=== PATIENT | male | born 1965 | race Caucasian/White ===

== ENCOUNTER 2017-01-05 21:27 | Emergency (ER) | payer OTHER ==
[2017-01-05 21:33] VITALS: RESP 18
[2017-01-05] MEDS ORDERED: ONDANSETRON 4 MG/2 ML VIAL IVP ONE ×2 (21:46→23:19)
[2017-01-05] MEDS ORDERED: NS 1,000 ML IV ONE (23:17)
[2017-01-05 23:22] LABS: % IMMATURE GRANULYOCYTES 0.4 % (0.0-1.1); ABSOLUTE IMMATURE GRANULOCYTES 0.05 10^3/uL (0.00-0.10); ADD DIFF? NO; ADD MORPH? NO; ADD SCAN? NO; ATYPICAL LYMPHOCYTE FLAG 30 (0-99); FRAGMENT RBC FLAG 0 (0-99); HEMATOCRIT 45.9 % (40.0-51.0); HEMOGLOBIN 16.2 g/dL (13.7-17.5); LEFT SHIFT FLG 0 (0-99); LIPEMIA HEMOLYSIS FLAG 90 (0-99); MEAN CELL HEMOGLOBIN CONCENTR. 35.3 g/dL (32.4-36.7); MEAN CELL VOLUME 87.8 fL (81.5-99.8); MEAN PLATELET VOLUME 8.9 fL (8.7-11.7); PLATELET CLUMPS FLAG 0 (0-99); PLATELET COUNT 435 10^3/uL (150-400); RED BLOOD CELL COUNT 5.23 10^6/uL (4.40-6.38); RED CELL DISTRIBUTION WIDTH 11.3 % (11.5-15.2)
[2017-01-05 23:28] LABS: ALANINE AMINOTRANSFERASE 28 IU/L (21-72); ALBUMIN 3.9 g/dL (3.5-5.0); ALKALINE PHOSPHATASE 91 IU/L (38-126); ANION GAP 12 mEq/L (8-16); ASPARTATE AMINOTRANSFERASE 17 IU/L (17-59); BILIRUBIN,TOTAL 1.2 mg/dL (0.1-1.4); BILIRUBIN-CONJUGATED 0.6 mg/dL (0.0-0.5); BILIRUBIN-UNCONJUGATED 0.6 mg/dL (0.0-1.1); CARBON DIOXIDE 28 mEq/l (22-31); CHLORIDE 96 mEq/L (97-110); CREATININE 1.1 mg/dL (0.7-1.3); GLOMERULAR FILTRATION RATE > 60; GLUCOSE 115 mg/dL (70-100); POTASSIUM 3.6 mEq/L (3.5-5.2); SODIUM 136 mEq/L (134-144)
[2017-01-05] MEDS ORDERED: KETOROLAC 15 MG/1 ML SDV ONE (23:41)
[2017-01-05] MEDS ORDERED: KETOROLAC 15 MG/1 ML SDV IVP ONE (23:44)
[2017-01-06 00:04] VITALS: O2SAT 96
--- NOTE | 2017-01-06 01:05 | EDPHY ---
H & P Stated Complaint: emesis and diarrhea for 10 days Time Seen by Provider: 01/05/17 22:55 HPI/ROS: Chief complaint: Nausea vomiting diarrhea. HPI: 51-year-old male has been having 2 weeks of general malaise. States 2 weeks ago he had an upper respiratory infection and had some nausea and vomiting associated with that. He felt better, but again started having some nausea and vomiting which started early this morning. Also had 2 loose stools today. No blood or melena. He is being evaluated for chronic back pain and is on meloxicam for this. He last took it last night. No fevers or chills. Some generalized body aches. No abdominal pain or epigastric pain or burning. No hematemesis. He does state that he feels dehydrated and has not been keeping any fluids down today. No cough, chest pain, or shortness of breath. ROS: 10 point Review of Systems is negative except as noted in the HPI. Past medical history: Chronic back pain Medications: Meloxicam Allergies: Latex Physical exam: Gen: Awake, Alert, No Distress HEENT: Nose: no rhinorrhea Eyes: PERRLA, EOMI Mouth: Dry mucosa Neck: Supple, no JVD Chest: nontender, lungs clear to auscultation Heart: S1, S2 normal, no murmur Abd: Soft, non-tender, no guarding Back: no CVA tenderness, no midline tenderness Ext: no edema, non-tender Skin: no rash Neuro: CN II-XII intact, Sensation grossly intact, Strength 5/5 in bilateral upper and lower extremities - Personal History Current Tetanus/Diphtheria Vaccine: Yes Current Tetanus Diphtheria and Acellular Pertussis (TDAP): Yes - Medical/Surgical History Hx Asthma: No Hx Chronic Respiratory Disease: No Hx Diabetes: No Hx Cardiac Disease: No Hx Renal Disease: No Hx Cirrhosis: No Hx Alcoholism: No Hx HIV/AIDS: No Hx Splenectomy or Spleen Trauma: No Other PMH: left knee surgery - Social History Smoking Status: Never smoked Constitutional: Initial Vital Signs Temperature (C) 36.6 C 01/05/17 21:31 Heart Rate 102 H 01/05/17 21:31 Respiratory Rate 18 01/05/17 21:31 Blood Pressure 143/116 H 01/05/17 21:31 O2 Sat (%) 96 01/05/17 21:31 O2 Delivery Mode Room Air Allergies/Adverse Reactions: Latex, Natural Rubber Allergy (Verified 01/05/17 21:34) Home Medications: Medication Instructions Recorded Synthroid 01/05/17 Medical Decision Making ED Course/Re-evaluation: Patient having general malaise, nausea vomiting 2 loose stools today appearing dehydrated. He has benign exam including a soft abdomen without any epigastric tenderness. He has had some diarrhea but no black stools. CBC is normal with a mild leukocytosis consistent with a viral illness. Will give him IV fluids here is feeling better. Also had some Toradol here. He has not taken his meloxicam today. He is scheduled for an MRI next week in his lumbar spine. Will discharge with follow-up with his primary care physician in follow-up for his MRI. Return for worsening. There is no evidence of acute upper GI bleeding at this time. - Data Points Laboratory Results: Laboratory Results 01/05/17 21:44 01/05/17 21:44 01/05/17 01/05/17 21:44 21:44 WBC 11.67 10^3/uL H 10^3/uL (3.80-9.50) RBC 5.23 10^6/uL 10^6/uL (4.40-6.38) Hgb 16.2 g/dL g/dL (13.7-17.5) Hct 45.9 % % (40.0-51.0) MCV 87.8 fL fL (81.5-99.8) MCH 31.0 pg pg (27.9-34.1) MCHC 35.3 g/dL g/dL (32.4-36.7) RDW 11.3 % L % (11.5-15.2) Plt Count 435 10^3/uL H 10^3/uL (150-400) MPV 8.9 fL fL (8.7-11.7) Neut % (Auto) 72.9 % % (39.3-74.2) Lymph % (Auto) 17.0 % % (15.0-45.0) [place] % (Auto) 5.7 % % (4.5-13.0) Eos % (Auto) 3.7 % % (0.6-7.6) Baso % (Auto) 0.3 % % (0.3-1.7) Nucleat RBC Rel Count 0.0 % % (0.0-0.2) Absolute Neuts (auto) 8.52 10^3/uL H 10^3/uL (1.70-6.50) Absolute Lymphs (auto) 1.98 10^3/uL 10^3/uL (1.00-3.00) Absolute Monos (auto) 0.66 10^3/uL 10^3/uL (0.30-0.80) Absolute Eos (auto) 0.43 10^3/uL H 10^3/uL (0.03-0.40) Absolute Basos (auto) 0.03 10^3/uL 10^3/uL (0.02-0.10) Absolute Nucleated RBC 0.00 10^3/uL 10^3/uL (0-0.01) Immature Gran % 0.4 % % (0.0-1.1) Immature Gran # 0.05 10^3/uL 10^3/uL (0.00-0.10) Sodium 136 mEq/L mEq/L (134-144) Potassium 3.6 mEq/L mEq/L (3.5-5.2) Chloride 96 mEq/L L mEq/L (97-110) Carbon Dioxide 28 mEq/l mEq/l (22-31) Anion Gap 12 mEq/L mEq/L (8-16) BUN 23 mg/dL mg/dL (7-23) Creatinine 1.1 mg/dL mg/dL (0.7-1.3) Estimated GFR > 60 Glucose 115 mg/dL H mg/dL (70-100) Calcium 11.0 mg/dL H mg/dL (8.5-10.4) Phosphorus 3.7 mg/dL mg/dL (2.5-4.5) Total Bilirubin 1.2 mg/dL mg/dL (0.1-1.4) Conjugated Bilirubin 0.6 mg/dL H mg/dL (0.0-0.5) Unconjugated Bilirubin 0.6 mg/dL mg/dL (0.0-1.1) AST 17 IU/L IU/L (17-59) ALT 28 IU/L IU/L (21-72) Alkaline Phosphatase 91 IU/L IU/L (38-126) Total Protein 7.0 g/dL g/dL (6.3-8.2) Albumin 3.9 g/dL g/dL (3.5-5.0) Lipase 104.0 IU/L IU/L (23-300) Medications Given: Discontinued Medications Sodium Chloride (Ns) 1,000 mls @ 0 mls/hr IV ONCE ONE PRN Reason: Wide Open Stop: 01/05/17 23:18 Last Admin: 01/05/17 23:18 Dose: 1,000 mls Ketorolac Tromethamine (Toradol) 15 mg IVP EDNOW ONE Stop: 01/05/17 23:45 Last Admin: 01/05/17 23:48 Dose: 15 mg Ondansetron HCl (Zofran) 4 mg IVP EDNOW ONE Stop: 01/05/17 21:47 Last Admin: 01/05/17 21:51 Dose: 4 mg Ondansetron HCl (Zofran) 4 mg IVP EDNOW ONE Stop: 01/05/17 23:20 Last Admin: 01/05/17 23:24 Dose: 4 mg Departure - Departure Disposition: Home, Routine, Self-Care Clinical Impression: Vomiting, Dehydration, Diarrhea Condition: Good Instructions: Acute Diarrhea (ED), Acute Nausea and Vomiting (ED) Additional Instructions: Drink plenty of fluids. You may take ondansetron for nausea and vomiting. Follow up with her primary care physician in 2-3 days for re-evaluation. Referrals: BRITTA CAZARES [Primary Care Provider] - As per Instructions
[2017-01-06] MEDS ORDERED: ONDANSETRON 4MG PREPACK#2 BTL TAKEHOME ONE (01:06)
[2017-01-06 01:19] VITALS: BP 149/109; PULSE 92; TEMP 98.6
== END 2017-01-06 01:19 | disposition home or self-care (01) ==
DX: R19.7 Diarrhea, unspecified (principal); E86.0 Dehydration; R11.10 Vomiting, unspecified; Z91.040 Latex allergy status
CPT/HCPCS: 96374; J1885; J2405

== ENCOUNTER 2017-01-10 16:11 | Inpatient (IN) | payer OTHER ==
[2017-01-10] MEDS ORDERED: NS 1,000 ML IV ONE ×2 (16:26→20:22)
[2017-01-10] MEDS ORDERED: PANTOPRAZOLE SODIUM 40 MG in NS 100 ML IV ONE (16:26)
[2017-01-10 16:31] LABS: % IMMATURE GRANULYOCYTES 0.9 % (0.0-1.1); ABSOLUTE IMMATURE GRANULOCYTES 0.22 10^3/uL (0.00-0.10); ADD DIFF? NO; ADD MORPH? NO; ADD SCAN? NO; ATYPICAL LYMPHOCYTE FLAG 0 (0-99); FRAGMENT RBC FLAG 0 (0-99); HEMATOCRIT 38.2 % (40.0-51.0); HEMOGLOBIN 13.5 g/dL (13.7-17.5); LEFT SHIFT FLG 0 (0-99); LIPEMIA HEMOLYSIS FLAG 90 (0-99); MEAN CELL HEMOGLOBIN 31.1 pg (27.9-34.1); MEAN CELL HEMOGLOBIN CONCENTR. 35.3 g/dL (32.4-36.7); PLATELET CLUMPS FLAG 10 (0-99); PLATELET COUNT 584 10^3/uL (150-400); RED BLOOD CELL COUNT 4.34 10^6/uL (4.40-6.38); RED CELL DISTRIBUTION WIDTH 11.5 % (11.5-15.2)
--- NOTE | 2017-01-10 16:38 | EDPHY ---
H & P Stated Complaint: Hematemesis Time Seen by Provider: 01/10/17 16:12 HPI/ROS: Chief complaint: Vomiting blood, diarrhea, syncope HPI: 51-year-old male with a history of chronic back pain who is been having 2 weeks of nausea vomiting and diarrhea. I saw him 4 days ago with nausea vomiting diarrhea at that time. He had normal H&H at that time. Had not been vomiting blood or having dark stools then. Patient states that he had been doing better and his diarrhea had light and up yesterday. Patient did eat some dinner last night and felt nauseated so vomited before bed. Patient was doing better today but again felt nauseated and had emesis of dark emesis. He then felt very lightheaded and laid down and felt he cannot get up off of the floor. EMS was called. On EMS arrival when they stood him to take him to the program he had a syncopal episode. He woke up after a few seconds and he then vomited a large amount of emesis which did contain some bright red blood with some clots. Still denies any melena. It is noteworthy that he is on meloxicam for his back. Patient is still using occasional marijuana but has not had any alcohol for a couple of weeks. Denies any fevers or chills. Also has a history of hypothyroidism and has been compliant with his medications. Denies any chest pain or abdominal pain. No palpitations. Per EMS the patient was tachycardic and hypotensive EN route. They gave him 800 mL of normal saline IV. ROS: 10 point Review of Systems is negative except as noted in the HPI. Past medical history: Chronic back pain Hypothyroidism Medications: Synthroid Meloxicam Allergies: Latex Physical exam: Gen: Awake, Alert, No Distress HEENT: Nose: no rhinorrhea Eyes: PERRLA, EOMI, pale conjunctiva Mouth: Moist mucosa Neck: Supple, no JVD Chest: nontender, lungs clear to auscultation Heart: S1, S2 normal, no murmur Abd: Soft, non-tender, no guarding Back: no CVA tenderness, no midline tenderness Ext: no edema, non-tender Skin: no rash Neuro: CN II-XII intact, Sensation grossly intact, Strength 5/5 in bilateral upper and lower extremities - Medical/Surgical History Hx Asthma: No Hx Chronic Respiratory Disease: No Hx Diabetes: No Hx Cardiac Disease: No Hx Renal Disease: No Hx Cirrhosis: No Hx Alcoholism: No Hx HIV/AIDS: No Hx Splenectomy or Spleen Trauma: No Other PMH: left knee surgery, hypothyroidism - Social History Smoking Status: Never smoked Constitutional: Initial Vital Signs Temperature (C) 36.3 C 01/10/17 16:25 Heart Rate 98 01/10/17 16:25 Respiratory Rate 18 01/10/17 16:25 Blood Pressure 103/77 01/10/17 16:25 O2 Sat (%) 100 01/10/17 16:25 O2 Delivery Mode Room Air Allergies/Adverse Reactions: Latex, Natural Rubber Allergy (Verified 01/05/17 21:34) Home Medications: Medication Instructions Recorded Synthroid 01/05/17 Medical Decision Making ED Course/Re-evaluation: Patient presenting with an episode of syncope after hematemesis after 2 weeks of nausea vomiting and diarrhea. He is very clinically dehydrated with a mild tachycardia mild hypotension. He did have 1 episode of hematemesis but has not had any melena. Has not had any epigastric pain or burning. He has however taking meloxicam which is concerning for possible gastritis or upper GI bleed. Will aggressively hydrate him, check his labs and reassess. Hemoglobin is mildly low at 13.5, he does have a leukocytosis of 25 but I think this is secondary to his vomiting and diarrhea. His BUN is up at 28. Remainder of his lab work is fairly unremarkable. He remains mildly tachycardic with a rate of 104. He is getting IV hydrated here. I have discussed with Dr. Carolyne Castellano, hospitalist. Will plan to admit to med surg under observation status for further hydration and evaluation. - Data Points Laboratory Results: Laboratory Results 01/10/17 14:12 01/10/17 14:12 01/10/17 01/10/17 14:12 14:12 WBC 25.43 10^3/uL H 10^3/uL (3.80-9.50) RBC 4.34 10^6/uL L 10^6/uL (4.40-6.38) Hgb 13.5 g/dL L g/dL (13.7-17.5) Hct 38.2 % L % (40.0-51.0) MCV 88.0 fL fL (81.5-99.8) MCH 31.1 pg pg (27.9-34.1) MCHC 35.3 g/dL g/dL (32.4-36.7) RDW 11.5 % % (11.5-15.2) Plt Count 584 10^3/uL H 10^3/uL (150-400) MPV 9.0 fL fL (8.7-11.7) Neut % (Auto) 80.6 % H % (39.3-74.2) Lymph % (Auto) 12.6 % L % (15.0-45.0) [place] % (Auto) 3.2 % L % (4.5-13.0) Eos % (Auto) 2.4 % % (0.6-7.6) Baso % (Auto) 0.3 % % (0.3-1.7) Nucleat RBC Rel Count 0.0 % % (0.0-0.2) Absolute Neuts (auto) 20.49 10^3/uL H 10^3/uL (1.70-6.50) Absolute Lymphs (auto) 3.21 10^3/uL H 10^3/uL (1.00-3.00) Absolute Monos (auto) 0.82 10^3/uL H 10^3/uL (0.30-0.80) Absolute Eos (auto) 0.62 10^3/uL H 10^3/uL (0.03-0.40) Absolute Basos (auto) 0.07 10^3/uL 10^3/uL (0.02-0.10) Absolute Nucleated RBC 0.00 10^3/uL 10^3/uL (0-0.01) Immature Gran % 0.9 % % (0.0-1.1) Immature Gran # 0.22 10^3/uL H 10^3/uL (0.00-0.10) Sodium 136 mEq/L mEq/L (134-144) Potassium 4.1 mEq/L mEq/L (3.5-5.2) Chloride 101 mEq/L mEq/L (97-110) Carbon Dioxide 23 mEq/l mEq/l (22-31) Anion Gap 12 mEq/L mEq/L (8-16) BUN 28 mg/dL H mg/dL (7-23) Creatinine 1.1 mg/dL mg/dL (0.7-1.3) Estimated GFR > 60 Glucose 154 mg/dL H mg/dL (70-100) Calcium 9.4 mg/dL mg/dL (8.5-10.4) Total Bilirubin 0.9 mg/dL mg/dL (0.1-1.4) Conjugated Bilirubin 0.3 mg/dL mg/dL (0.0-0.5) Unconjugated Bilirubin 0.6 mg/dL mg/dL (0.0-1.1) AST 17 IU/L IU/L (17-59) ALT 37 IU/L IU/L (21-72) Alkaline Phosphatase 81 IU/L IU/L (38-126) Total Protein 6.0 g/dL L g/dL (6.3-8.2) Albumin 3.3 g/dL L g/dL (3.5-5.0) Lipase 148.0 IU/L IU/L (23-300) Departure - Departure Disposition: [facility] Inpatient Acute Clinical Impression: Vomiting, Dehydration, Syncope Condition: Fair Referrals: BRITTA CAZARES [Primary Care Provider] - As per Instructions
[2017-01-10 16:39] LABS: ALANINE AMINOTRANSFERASE 37 IU/L (21-72); ALBUMIN 3.3 g/dL (3.5-5.0); ALKALINE PHOSPHATASE 81 IU/L (38-126); ANION GAP 12 mEq/L (8-16); ASPARTATE AMINOTRANSFERASE 17 IU/L (17-59); BILIRUBIN,TOTAL 0.9 mg/dL (0.1-1.4); BILIRUBIN-CONJUGATED 0.3 mg/dL (0.0-0.5); BILIRUBIN-UNCONJUGATED 0.6 mg/dL (0.0-1.1); CALCIUM 9.4 mg/dL (8.5-10.4); CARBON DIOXIDE 23 mEq/l (22-31); CHLORIDE 101 mEq/L (97-110); CREATININE 1.1 mg/dL (0.7-1.3); GLOMERULAR FILTRATION RATE > 60; GLUCOSE 154 mg/dL (70-100); POTASSIUM 4.1 mEq/L (3.5-5.2); SODIUM 136 mEq/L (134-144)
[2017-01-10] MEDS ORDERED: PANTOPRAZOLE SODIUM 40 MG VIAL ONE (17:01)
[2017-01-10] MEDS ORDERED: PROMETHAZINE HCL 25 MG TAB PO PRN (18:57)
[2017-01-10] MEDS ORDERED: ONDANSETRON DISINTEGRATING 4 MG TAB PO PRN (18:57)
[2017-01-10] MEDS ORDERED: ACETAMINOPHEN 325 MG TAB PO PRN (18:57)
--- NOTE | 2017-01-10 20:38 | PDGENHP ---
History and Physical - Chief Complaint Syncope, hematemesis, N/V/D - History of Present Illness 51 yo male with h/o chronic back pain presents to ED with 2 weeks of N/V/D, ultimately leading to hematemesis and syncope this afternoon. He reports a h/o peptic ulcer disease in the . 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 3 weeks ago, he started on daily Meloxicam. About a week later, he developed nausea and vomiting with difficulty tolerating PO. 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 He was hydrated and discharged home feeling better. However, his symptoms persisted and he then developed diarrhea. He does endorse vague epigastric abdominal pain. He vomits at least twice a day and has had diarrhea about twice daily as well for the past several days. He denies hematochezia or melanotic stool. Today, he became lightheaded after vomiting and EMS was called. Upon their arrival, he had an episode of hematemesis with clots and then had a witnessed syncopal episode. He denies CP, SOB or palpitations. He also gives a h/o increased stress as his recently left him with their 2 children. He received 1 L NS in the ED and he now feels better. There has been no further emesis since arrival. Prior to his GI symptoms, he did complete a course of Azithromycin for URI symptoms. He denies camping or foreign travel. He reports sick contacts in his 2 children, who suffered from several viral illnesses recently. He also endorses a 15-20 lb weight loss since the onset of these symptoms There is a family h/o colon cancer in his uncle. He has not had much alcohol recently, though is a home cruz and is historically a somewhat regular drinker. History Information - Allergies/Home Medication List Allergies/Adverse Reactions: Latex, Natural Rubber Allergy (Verified 01/05/17 21:34) Home Medications: Levothyroxine [Synthroid 150 mcg (*)] 150 mcg PO DAILY06 01/05/17 [Last Taken 07:00] Acetaminophen [Tylenol ES 500 mg (*)] 1,000 mg PO Q8 PRN 01/10/17 [Last Taken ] Cholecalciferol (Vitamin D3) [Vitamin D3] 5,000 unit PO DAILY 01/10/17 [Last Taken 01/10/17 07:00] Cyclobenzaprine [Flexeril 10 MG (*)] 10 mg PO HS PRN 01/10/17 [Last Taken ] MELOXICAM [Mobic] 15 mg PO HS 01/10/17 [Last Taken 01/07/17] I have personally reviewed and updated: family history, medical history, social history, surgical history - Past Medical History Additional medical history: hypothyroidism, chronic low back pain, h/o PUD - Surgical History Additional surgical history: h/o pyloric stenosis repair at 10 months of life, left knee surgery - Family History Additional family history: dad was an alcoholic and had autoimmune hepatitis. His recently left him with their 2 children. His brother is at the bedside and is supportive. - Social History Smoking Status: Light smoker Tobacco Use: Cigarettes, Less than 1 pack/day Alcohol Use: Other (1-2 beers daily, though none for past several weeks) Drug Use: Marijuana Review of Systems ROS: 10pt was reviewed & negative except for what was stated in HPI & below Physical Exam Temp Pulse Resp BP Pulse Ox 36.3 C 100 16 97/73 L 97 01/10/17 18:24 01/10/17 20:00 01/10/17 20:00 01/10/17 20:00 01/10/17 20:00 Constitutional: no apparent distress Eyes: PERRL Ears, Nose, Mouth, Throat: dry mucous membranes Cardiovascular: regular rate and rhythym, no murmur, rub, or gallop Respiratory: no respiratory distress, no rales or rhonchi Gastrointestinal: normoactive bowel sounds, soft, non-tender abdomen Skin: warm Musculoskeletal: full muscle strength Neurologic: AAOx3 Psychiatric: interacting appropriately Lab Data & Imaging Review 01/10/17 20:30 01/10/17 14:12 WBC 25.43 10^3/uL (3.80-9.50) H 01/10/17 14:12 RBC 4.34 10^6/uL (4.40-6.38) L 01/10/17 14:12 Hgb 13.5 g/dL (13.7-17.5) L 01/10/17 14:12 Hct 38.2 % (40.0-51.0) L 01/10/17 14:12 MCV 88.0 fL (81.5-99.8) 01/10/17 14:12 MCH 31.1 pg (27.9-34.1) 01/10/17 14:12 MCHC 35.3 g/dL (32.4-36.7) 01/10/17 14:12 RDW 11.5 % (11.5-15.2) 01/10/17 14:12 Plt Count 584 10^3/uL (150-400) H 01/10/17 14:12 MPV 9.0 fL (8.7-11.7) 01/10/17 14:12 Neut % (Auto) 80.6 % (39.3-74.2) H 01/10/17 14:12 Lymph % (Auto) 12.6 % (15.0-45.0) L 01/10/17 14:12 [place] % (Auto) 3.2 % (4.5-13.0) L 01/10/17 14:12 Eos % (Auto) 2.4 % (0.6-7.6) 01/10/17 14:12 Baso % (Auto) 0.3 % (0.3-1.7) 01/10/17 14:12 Nucleat RBC Rel Count 0.0 % (0.0-0.2) 01/10/17 14:12 Absolute Neuts (auto) 20.49 10^3/uL (1.70-6.50) H 01/10/17 14:12 Absolute Lymphs (auto) 3.21 10^3/uL (1.00-3.00) H 01/10/17 14:12 Absolute Monos (auto) 0.82 10^3/uL (0.30-0.80) H 01/10/17 14:12 Absolute Eos (auto) 0.62 10^3/uL (0.03-0.40) H 01/10/17 14:12 Absolute Basos (auto) 0.07 10^3/uL (0.02-0.10) 01/10/17 14:12 Absolute Nucleated RBC 0.00 10^3/uL (0-0.01) 01/10/17 14:12 Immature Gran % 0.9 % (0.0-1.1) 01/10/17 14:12 Immature Gran # 0.22 10^3/uL (0.00-0.10) H 01/10/17 14:12 Sodium 136 mEq/L (134-144) 01/10/17 14:12 Potassium 4.1 mEq/L (3.5-5.2) 01/10/17 14:12 Chloride 101 mEq/L (97-110) 01/10/17 14:12 Carbon Dioxide 23 mEq/l (22-31) 01/10/17 14:12 Anion Gap 12 mEq/L (8-16) 01/10/17 14:12 BUN 28 mg/dL (7-23) H 01/10/17 14:12 Creatinine 1.1 mg/dL (0.7-1.3) 01/10/17 14:12 Estimated GFR > 60 01/10/17 14:12 Glucose 154 mg/dL (70-100) H 01/10/17 14:12 Calcium 9.4 mg/dL (8.5-10.4) 01/10/17 14:12 Total Bilirubin 0.9 mg/dL (0.1-1.4) 01/10/17 14:12 Conjugated Bilirubin 0.3 mg/dL (0.0-0.5) 01/10/17 14:12 Unconjugated Bilirubin 0.6 mg/dL (0.0-1.1) 01/10/17 14:12 AST 17 IU/L (17-59) 01/10/17 14:12 ALT 37 IU/L (21-72) 01/10/17 14:12 Alkaline Phosphatase 81 IU/L (38-126) 01/10/17 14:12 Total Protein 6.0 g/dL (6.3-8.2) L 01/10/17 14:12 Albumin 3.3 g/dL (3.5-5.0) L 01/10/17 14:12 Lipase 148.0 IU/L (23-300) 01/10/17 14:12 Assessment & Plan Assessment: Syncope secondary to volume depletion - Low suspicion for cardiac etiology, history is consistent with volume depletion. He has received a 1 L NS bolus in the ED. Will repeat and continue IVF's overnight. Hematemesis - he may have suffered a Elisa Peralta tear in the setting of persistent vomiting versus PUD / bleeding ulcer. IVF's as above, will trend H&H , IV PPI, GI consulted for EGD, NPO after midnight. N/V/D - This has been ongoing for >2 weeks. Check C diff given recent atbx use. GI pathogen panel ordered, which will also r/o Norovirus or other infectious etiology. His symptoms have predominantly been N/V thus PUD is a consideration. Check H pylori. GI consult / EGD as above. Hold NSAIDs. With his weight loss and change in bowel habits, he also needs colon cancer screening. Will defer to GI if inpt c-scope is warranted, o/w may have done as outpt. Also consider cannabis induced hyperemesis, though this doesn't seem classic for that and he denies THC use in past several weeks. Discussed THC cessation. Leukocytosis - Low suspicion for infection as he appears non-toxic. Suspect stress response in setting of vomiting. Check C diff as above. Hydrate overnight and repeat labs in am. Chronic low back pain - hold nsaids as above, will try lidocaine patch and will need PCP f/u for further pain management Dispo - obs. May need to change to inpt if he has ongoing hematemesis or h&h trending down
[2017-01-10] MEDS: NS 1,000 ML IV SCH (20:41)
[2017-01-10 20:45] LABS: HEMATOCRIT 31.9 % (40.0-51.0); HEMOGLOBIN 10.9 g/dL (13.7-17.5)
[2017-01-10] MEDS: PANTOPRAZOLE SODIUM 40 MG in NS 100 ML IV SCH (22:44)
[2017-01-11 03:31] LABS: HEMATOCRIT 28.1 % (40.0-51.0); HEMOGLOBIN 9.5 g/dL (13.7-17.5)
[2017-01-11] MEDS: LEVOTHYROXINE 150 MCG TAB PO SCH ×2 (06:37→07:41)
[2017-01-11 07:08] LABS: % IMMATURE GRANULYOCYTES 0.4 % (0.0-1.1); ABSOLUTE IMMATURE GRANULOCYTES 0.04 10^3/uL (0.00-0.10); ADD DIFF? NO; ADD MORPH? NO; ADD SCAN? NO; ATYPICAL LYMPHOCYTE FLAG 10 (0-99); FRAGMENT RBC FLAG 0 (0-99); HEMATOCRIT 28.1 % (40.0-51.0); HEMOGLOBIN 9.8 g/dL (13.7-17.5); LEFT SHIFT FLG 0 (0-99); LIPEMIA HEMOLYSIS FLAG 90 (0-99); MEAN CELL HEMOGLOBIN 31.5 pg (27.9-34.1); MEAN CELL HEMOGLOBIN CONCENTR. 34.9 g/dL (32.4-36.7); MEAN CELL VOLUME 90.4 fL (81.5-99.8); MEAN PLATELET VOLUME 8.8 fL (8.7-11.7); PLATELET CLUMPS FLAG 10 (0-99); RED BLOOD CELL COUNT 3.11 10^6/uL (4.40-6.38); RED CELL DISTRIBUTION WIDTH 11.8 % (11.5-15.2)
[2017-01-11 07:12] LABS: INR 1.19 (0.83-1.16); PROTIME(PATIENT) 15.1 SEC (12.0-15.0)
[2017-01-11 07:21] LABS: PLATELET COUNT 314 10^3/uL (150-400)
[2017-01-11 07:39] LABS: ANION GAP 8 mEq/L (8-16); CALCIUM 8.4 mg/dL (8.5-10.4); CARBON DIOXIDE 21 mEq/l (22-31); CHLORIDE 108 mEq/L (97-110); CHOLESTEROL 106 mg/dL (140-220); CHOLESTEROL/HDL RATIO 5.89 RATIO (1.00-4.97); GLOMERULAR FILTRATION RATE > 60; GLUCOSE 85 mg/dL (70-100); HIGH DENSITY LIPOPROTEIN 18 mg/dL (40-65); LDL/HDL RATIO 3.39 RATIO (1.00-3.64); LOW DENSITY LIPOPROTEIN 61 mg/dL (80-100); NON-HIGH DENSITY LIPOPROTEIN 88 mg/dL (90-129); POTASSIUM 4.7 mEq/L (3.5-5.2); SODIUM 137 mEq/L (134-144); TRIGLYCERIDE 139 mg/dL (40-150); VERY LOW DENSITY LIPOPROTEINS 27 mg/dL (8-25)
[2017-01-11] MEDS: LIDOCAINE 5% 1 EA PATCH TD SCH (07:41)
[2017-01-11] MEDS: PANTOPRAZOLE SODIUM 40 MG in NS 100 ML IV SCH ×2 (07:41→22:05)
[2017-01-11] MEDS: NS 1,000 ML IV SCH ×3 (07:42→22:05)
[2017-01-11] MEDS ORDERED: fentaNYL 100 MCG/2 ML INJ ONE ×2 (11:50→12:10)
[2017-01-11] MEDS ORDERED: MIDAZOLAM 2 MG/2 ML VIAL ONE (11:50)
[2017-01-11] MEDS ORDERED: EPINEPHrine 1 MG/10 ML SYR IVP ONE ×2 (12:01→12:33)
[2017-01-11] MEDS ORDERED: ETOMIDATE 20 MG/10 ML VIAL ONE ×2 (12:12)
[2017-01-11] MEDS ORDERED: SUCCINYLCHOLINE CHLORIDE*ANESTHESIA ONLY*200 MG/10 ML SYR IVP ONE (12:12)
--- NOTE | 2017-01-11 12:19 | GCON ---
[f rep st] CONSULTATION CHIEF COMPLAINT: Hematemesis, anemia. HISTORY OF PRESENT ILLNESS: This 51-year-old gentleman has a history of chronic back pain. He had presented to the emergency room about 2 weeks ago with complaints of nausea, vomiting, and diarrhea. He was diagnosed with a gastrointestinal illness at that time. He does have a remote history of p eptic ulcer disease. 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 He does have chronic back pain. About 3 weeks ago, he did start on meloxicam. About a week later he did have some nausea wi th some vomiting and difficulty keeping in p.o. He reports he has lost about 15 pounds over the las t 2 weeks due to difficulty eating. He had presented 4 days prior to admission with the above compl aints and was given IV fluids and discharged home. His symptoms, however, persisted and he develope d some diarrhea, was feeling lightheaded and having some epigastric pain. He vomited at home and re ported had some hematemesis. Ambulance was called and he did have a syncopal episode prior to trans port. He had another episode of vomiting in the ambulance. He was not having any chest pain or haylee rtness of breath. He was given IV fluids in the emergency room with improvement and was hemodynamic ally stable. He does report that he was also recently given azathioprine for his previous URI illne ss. He did have an episode of melenic stool this morning. He has been hemodynamically stable. He did have a drop in his hematocrit from 38.2 to 28.2. I have been asked to see patient for further e valuation. PAST MEDICAL HISTORY: Remarkable for hypothyroidism, remote history of pyloric stenosis as an infan t, status post surgery, chronic low back pain, history of peptic ulcer disease, left knee surgery. MEDICATIONS: Prior to admission included levothyroxine, acetaminophen, vitamin D3, Flexeril, meloxi cam. ALLERGIES: Reports allergies to latex and rubber. FAMILY HISTORY: Negative as it pertains to chief complaint. SOCIAL HISTORY: He is a light smoker. Drinks 1-2 beers daily. Does use marijuana. He is , but . Has 2 children. REVIEW OF SYSTEMS: Negative for 10 systems other than mentioned in HPI. PHYSICAL EXAMINATION: VITAL SIGNS: 116/83, 96 heart rate, respiratory rate 16, 97% sat on room air , temperature 37.2. GENERAL: Very pleasant gentleman, no acute distress, lying in a stretcher. HE ENT: Normocephalic, atraumatic. EOMI. NECK: Supple. No cervical adenopathy. No thyromegaly. M ucous membranes moist. LUNGS: Clear. CARDIAC: Normal S1, S2, without murmur. ABDOMEN: Soft, be nign. Normal bowel sounds. Nontender. EXTREMITIES: Without clubbing, cyanosis, edema. NEURO: N onfocal. SKIN: Warm and dry, intact. PSYCH: Alert and oriented with normal affect. LABORATORY DATA: Hemoglobin 9.8, hematocrit 28.1. PT of 15.1 with an INR of 1.19. Serum sodium 13 7, potassium 4.7, chloride 108, CO2 21, BUN of 43. IMPRESSION: 51-year-old male with gastrointestinal bleed, remote history of peptic ulcer disease, r ecent NSAID use. Suspect peptic ulcer disease, NSAID-induced gastritis, or ulceration. RECOMMENDATIONS: Serial H and H, IV pantoprazole. Proceed with diagnostic endoscopy. We will foll ow with you. /[id number]/[id number]
[2017-01-11] MEDS ORDERED: ONDANSETRON 4 MG/2 ML VIAL ONE (12:40)
[2017-01-11] MEDS ORDERED: PANTOPRAZOLE SODIUM 80 MG in NS 100 ML IV ONE (12:55)
--- NOTE | 2017-01-11 14:19 | GPN ---
[f rep st] PROCEDURE NOTE PROCEDURE: Esophagogastroduodenoscopy with control of hemorrhage. PREOPERATIVE DIAGNOSIS: Gastrointestinal bleed. POSTOPERATIVE DIAGNOSIS: Active bleeding and duodenal ulcer, status post treatment with epinephrine , 11 cc 1:10,000. INDICATIONS: A 51-year-old gentleman with a 2-week course of recurrent nausea, vomiting and previou s acute gastrointestinal illness. Patient with low back pain who is started on meloxicam. He has b een having some epigastric pain with nausea, vomiting, hematemesis. He did drop his hematocrit. He has been hemodynamically stable in the hospital. Presents now for upper endoscopy. PHYSICAL EXAM: VITAL SIGNS: Stable. LUNGS: Clear. CARDIAC: Normal S1, S2. No murmur. PERMIT: The procedure was explained to the patient. The risks and benefits of the procedure were o utlined to the patient. Informed consent was obtained. PREOPERATIVE MEDICATIONS: Fentanyl 150 mcg, Versed 6 mg. FINDINGS OF PROCEDURE: Patient placed in left lateral decubitus position. GIF-180 video scope was passed in the oropharynx under direct visualization to the esophagus. The esophagus was remarkable for severe erosive esophagitis, consistent with patient's history of recurrent nausea and vomiting. Endoscope was passed in the stomach. There was evidence of clot and blood in the dependent portion of the stomach. Distal stomach appeared normal with normal pylorus and antrum. The endoscope was passed through the pylorus in the 1st and 2nd portion of the duodenum. The second portion of the du odenum was normal. The first portion of the duodenum there was a 1 cm ulceration with adherent clot and question visible vessel. It was somewhat laterally located, slightly inferior. The clot was w ashed, and then there was significant brisk active bleeding. A large amount of blood pooled and obs cured the pylorus. Unable to see well endoscopically due to a large amount of blood. The patient s tarted vomiting blood. The endoscope was then withdrawn. Anesthesia was consulted. The patient wa s then stabilized and intubated. The patient became very tachycardic. 1 unit of cross-matched bloo d was transfused, and his 2nd unit of cross-matched blood was then ordered. The patient was then re intubated with a therapeutic TGIF-180 endoscope to assess the pylorus and the 1st and 2nd portions o f the duodenum. There was a large amount of clot in the dependent portion of the stomach. The endo scope was passed to the pylorus. There was a large amount of clot. The area was injected blindly w ith epinephrine 1:10,000, total 11 cc. There appeared to be blanching of the duodenal mucosa. Ther e seemed to be control of bleeding with no active bleeding. The therapeutic scope was removed, and the standard GIF-180 scope was then reintroduced. The ulcer was watched for a period of time with n o active bleeding. Due to adherent clot unable to cauterized or clip. Decided to discontinue the p rocedure and observe patient in the ICU. Endoscope was then withdrawn. IMPRESSION: Duodenal ulcer with visible vessel. Active bleeding, status post therapeutic treatment with epinephrine 1:10,000. There appeared to be hemostasis. RECOMMENDATIONS: For transfer to the ICU. IV Protonix drip 80 mg bolus and 8 mg/hour. N.p.o. If any signs or symptoms of recurrent bleeding, consider the repeat endoscopy or IR evaluation for embo lization of the GDA. /[id number]/MODL
[2017-01-11 15:56] LABS: HEMATOCRIT 28.6 % (40.0-51.0)
--- NOTE | 2017-01-11 16:38 | HOSPPROG ---
Hospitalist Progress Note Assessment/Plan: I/P #Syncope secondary to volume depletion - Low suspicion for cardiac etiology, history is consistent with volume depletion. -Holding Cardiac W/U. No chest pain, SOB, palpitations, or leg edema #UGIB with Acute Blood Loss Anemia: Duodenal bleed per endoscopy -S/P PRBC transfusion 01/11 -Hemostasis achieved via Epinephrine. No cauterization or clip was placed due to large clot -Continue IV Protonix -Continue Serial H/H -If persistent bleed, then either repeat endoscopy vs IR eval for Embolization of GDA -NPO, IVF #Acute Respiratory Failure, resolved. He was intubated during endoscopy due to vomiting. Now extubated, doing well. -Monitor closely. Watch for infection #H-Pylori. -Amoxicillin and Clarithromycin -PPI #Erosive Esophagitis: likely due to recurrent emesis. -cont PPI #N/V/D: likely due to bleeding. No Nausea or emesis currently. -antiemetics PRN #Hx of ETOH use. Denies Alcoholism or daily use #Chronic back pain with recent NSAID use -No NSAIDS #Hypothyroidism: on Levothyroxine #THC use: chronic Dispo/plan: monitor in the ICU overnight. Currently he is hemodynamically stable and no signs of active bleeding. total critical care time is 40 minutes Subjective: Awake. Some abd discomfort. No nausea or emesis. Objective: Vital Signs Temp Pulse Resp BP Pulse Ox 36.4 C 100 17 99/53 L 100 01/11/17 14:00 01/11/17 16:00 01/11/17 16:00 01/11/17 16:00 01/11/17 16:00 Microbiology 01/11/17 08:20 Gastrointestinal Tract Panel (PCR) - Final Stool No Organism Detected Laboratory Results 01/11/17 15:45 01/11/17 06:40 01/10/17 01/11/17 01/12/17 05:59 05:59 05:59 Intake Total 3050 Balance 3050 PT 15.1 SEC (12.0-15.0) H 01/11/17 06:40 INR 1.19 (0.83-1.16) H 01/11/17 06:40 - Time Spent With Patient Time Spent with Patient: greater than 35 minutes Time Spent with Patient: Greater than 35 minutes spent on this patients care, greater than 50% of time spent counseling, educating, and coordinating care regarding the above mentioned plan. - Physical Exam Constitutional: no apparent distress, appears nourished Eyes: PERRL, EOMI Ears, Nose, Mouth, Throat: moist mucous membranes, hearing normal Cardiovascular: regular rate and rhythym, no murmur, rub, or gallop, No JVD Respiratory: no respiratory distress, no rales or rhonchi, clear to auscultation Gastrointestinal: normoactive bowel sounds, no palpable masses, tenderness Genitourinary: no bladder fullness Skin: warm, normal color Neurologic: AAOx3, No weakness Psychiatric: interacting appropriately, not anxious, not encephalopathic ICD10 Worksheet Patient Problems: Problems Problem Status Onset Dehydration Acute Syncope Acute Vomiting Acute
[2017-01-11] MEDS: ONDANSETRON 4 MG/2 ML VIAL IVP PRN (20:50)
[2017-01-11] MEDS: CYCLOBENZAPRINE 10 MG TAB PO PRN (20:50)
[2017-01-11] MEDS: CLARITHROMYCIN 500 MG TAB PO SCH (20:51)
[2017-01-11] MEDS: PATCH REMOVAL 1 EA PATCH TD SCH (22:05)
[2017-01-11 22:12] LABS: HEMATOCRIT 25.9 % (40.0-51.0); HEMOGLOBIN 9.3 g/dL (13.7-17.5)
[2017-01-12 04:55] LABS: % IMMATURE GRANULYOCYTES 0.3 % (0.0-1.1); ABSOLUTE IMMATURE GRANULOCYTES 0.03 10^3/uL (0.00-0.10); ADD DIFF? NO; ADD MORPH? NO; ADD SCAN? NO; ATYPICAL LYMPHOCYTE FLAG 10 (0-99); FRAGMENT RBC FLAG 0 (0-99); HEMATOCRIT 24.3 % (40.0-51.0); HEMOGLOBIN 8.7 g/dL (13.7-17.5); LEFT SHIFT FLG 0 (0-99); LIPEMIA HEMOLYSIS FLAG 90 (0-99); MEAN CELL HEMOGLOBIN 31.2 pg (27.9-34.1); MEAN CELL HEMOGLOBIN CONCENTR. 35.8 g/dL (32.4-36.7); MEAN CELL VOLUME 87.1 fL (81.5-99.8); MEAN PLATELET VOLUME 8.8 fL (8.7-11.7); PLATELET CLUMPS FLAG 0 (0-99); PLATELET COUNT 233 10^3/uL (150-400); RED BLOOD CELL COUNT 2.79 10^6/uL (4.40-6.38); RED CELL DISTRIBUTION WIDTH 12.7 % (11.5-15.2)
[2017-01-12 05:11] LABS: ANION GAP 4 mEq/L (8-16); CARBON DIOXIDE 21 mEq/l (22-31); CHLORIDE 112 mEq/L (97-110); CREATININE 0.9 mg/dL (0.7-1.3); GLOMERULAR FILTRATION RATE > 60; GLUCOSE 85 mg/dL (70-100); POTASSIUM 4.3 mEq/L (3.5-5.2); SODIUM 137 mEq/L (134-144)
[2017-01-12] MEDS: LIDOCAINE 5% 1 EA PATCH TD SCH (08:03)
[2017-01-12] MEDS: CLARITHROMYCIN 500 MG TAB PO SCH ×2 (08:03→21:20)
[2017-01-12] MEDS: PANTOPRAZOLE SODIUM 40 MG in NS 100 ML IV SCH ×2 (08:03→21:20)
--- NOTE | 2017-01-12 09:22 | SOAPPROG ---
SOAP Progress Note Assessment/Plan: Assessment: GIB, DU with bleeding s/p endoscopic therapy with epinephrine. No signs of bleeding last night. Has received two units of PRBC's. Hemodynamically stable. H. pylori positive. Plan: 1. Clear liquid diet 2. Continue on IV pantoprazole drip fro 24 hours 3. Ok to transfer to med/surg tele 4. Reassess tomorrow as to whether or not repeat EGD 5. IR is aware of patient if any signs of acute bleeding. 01/12/17 09:17 Subjective: CC: GI bleed Upper GI bleed, DU. Stable without acute signs of bleeding. Denies abdominal pain. Had no BM's last night but had one formed black stool this AM. Objective: Vital Signs Temp Pulse Resp BP Pulse Ox 36.7 C 101 H 19 104/78 97 01/12/17 04:00 01/12/17 09:00 01/12/17 09:00 01/12/17 09:00 01/12/17 09:00 Microbiology 01/11/17 08:20 Gastrointestinal Tract Panel (PCR) - Final Stool No Organism Detected Laboratory Results 01/12/17 04:45 01/12/17 04:45 01/11/17 01/12/17 01/13/17 05:59 05:59 05:59 Intake Total 3050 2714 Output Total 2150 Balance 3050 564 PT 15.1 SEC (12.0-15.0) H 01/11/17 06:40 INR 1.19 (0.83-1.16) H 01/11/17 06:40 Generic Name Dose Route Start Last Admin Trade Name Freq PRN Reason Stop Dose Admin Acetaminophen 650 mg 01/10/17 18:57 01/11/17 20:15 Tylenol PO 07/09/17 18:56 650 mg Q4HRS PRN Administration Pain, Mild/Fever, Can Take PO Amoxicillin 1,000 mg 01/11/17 21:00 01/12/17 08:03 Amoxicillin PO 02/10/17 20:59 1,000 mg BID NIMA Administration Protocol Clarithromycin 500 mg 01/11/17 21:00 01/12/17 08:03 Biaxin PO 02/10/17 20:59 500 mg BID NIMA Administration Protocol Cyclobenzaprine HCl 10 mg 01/11/17 00:06 01/11/17 20:50 Flexeril PO 07/10/17 00:05 10 mg HS PRN Administration MUSCLE SPASMS Sodium Chloride 1,000 mls @ 100 mls/hr 01/10/17 19:00 01/11/17 22:05 Ns IV 07/09/17 18:59 1,000 mls CONT NIMA Administration Pantoprazole Sodium 40 mg/ 100 mls @ 200 mls/hr 01/10/17 21:00 01/12/17 08:03 Sodium Chloride IV 07/09/17 20:59 100 mls BID NIMA Administration Levothyroxine Sodium 150 mcg 01/11/17 06:00 01/11/17 07:41 Synthroid PO 07/10/17 05:59 150 mcg DAILY06 NIMA Administration Lidocaine 1 ea 01/11/17 09:00 01/12/17 08:03 Lidoderm 5% TD 07/10/17 08:59 1 ea DAILY NIMA Administration Miscellaneous Information 1 ea 01/11/17 21:00 01/11/17 22:05 Patch Removal TD 07/10/17 20:59 1 ea DAILY21 NIMA Administration Ondansetron HCl 4 mg 01/10/17 18:57 01/11/17 20:50 Zofran IVP 07/09/17 18:56 4 mg Q4HRS PRN Administration Nausea/Vomiting, Can't Take PO Ondansetron HCl 4 mg 01/10/17 18:57 Zofran Odt PO 07/09/17 18:56 Q4HRS PRN Nausea/Vomiting, Use 1st Promethazine HCl 12.5 mg 01/10/17 18:57 Phenergan PO 07/09/17 18:56 Q6HRS PRN Nausea/Vomiting, Use 2nd Discontinued Medications Generic Name Dose Route Start Last Admin Trade Name Freq PRN Reason Stop Dose Admin Epinephrine HCl Confirm 01/11/17 12:01 Epinephrine Administered 01/11/17 12:02 Dose 1 mg IVP .STK-MED ONE Epinephrine HCl Confirm 01/11/17 12:33 Epinephrine Administered 01/11/17 12:34 Dose 1 mg IVP .STK-MED ONE Etomidate Confirm 01/11/17 12:12 Etomidate Administered 01/11/17 12:13 Dose 20 mg .ROUTE .STK-MED ONE Etomidate Confirm 01/11/17 12:12 Etomidate Administered 01/11/17 12:13 Dose 20 mg .ROUTE .STK-MED ONE Fentanyl Confirm 01/11/17 11:50 Sublimaze Administered 01/11/17 11:51 Dose 300 mcg .ROUTE .STK-MED ONE Fentanyl Confirm 01/11/17 12:10 Sublimaze Administered 01/11/17 12:11 Dose 100 mcg .ROUTE .STK-MED ONE Sodium Chloride 1,000 mls @ 0 mls/hr 01/10/17 16:26 01/10/17 17:10 Ns IV 01/10/17 16:27 1,000 mls ONCE ONE Administration Wide Open Pantoprazole Sodium 40 mg/ 100 mls @ 200 mls/hr 01/10/17 16:26 01/10/17 17:05 Sodium Chloride IV 01/10/17 16:55 100 mls EDNOW ONE Administration Sodium Chloride 1,000 mls @ 0 mls/hr 01/10/17 20:22 01/10/17 22:16 Ns IV 01/10/17 20:23 Not Given ONCE ONE Wide Open Pantoprazole Sodium 80 mg/ 100 mls @ 200 mls/hr 01/11/17 12:55 01/11/17 14:05 Sodium Chloride IV 01/11/17 13:24 100 mls ONCE ONE Administration Midazolam HCl Confirm 01/11/17 11:50 Versed Administered 01/11/17 11:51 Dose 8 mg .ROUTE .STK-MED ONE Ondansetron HCl Confirm 01/11/17 12:40 Zofran Administered 01/11/17 12:41 Dose 4 mg .ROUTE .STK-MED ONE Pantoprazole Sodium Confirm 01/10/17 17:01 Protonix Administered 01/10/17 17:02 Dose 40 mg .ROUTE .STK-MED ONE Succinylcholine Chloride Confirm 01/11/17 12:12 Quelicin Administered 01/11/17 12:13 Dose 200 mg IVP .STK-MED ONE Physical Exam - Physical Exam General Appearance: alert, no apparent distress Respiratory: lungs clear, normal breath sounds Cardiac/Chest: regular rate, rhythm Abdomen: normal bowel sounds, non-tender, soft Skin: normal color, warm/dry Neuro/Psych: no motor/sensory deficits, alert, normal mood/affect ICD10 Worksheet Patient Problems: Problems Problem Status Onset Dehydration Acute Syncope Acute Vomiting Acute
--- NOTE | 2017-01-12 16:46 | HOSPPROG ---
Hospitalist Progress Note Assessment/Plan: I/P #Syncope secondary to volume depletion - Low suspicion for cardiac etiology, history is consistent with volume depletion. -Holding Cardiac W/U. No chest pain, SOB, palpitations, or leg edema #UGIB with Acute Blood Loss Anemia: Duodenal bleed per endoscopy, GI following -slight drop in H/H. -S/P 2 units transfusion 01/11 -Hemostasis achieved via Epinephrine. No cauterization or clip was placed due to large clot -Continue IV Protonix -Continue Serial H/H -If persistent bleed, then either repeat endoscopy vs IR eval for Embolization of GDA -CLD, Stop IVF #Acute Respiratory Failure, resolved. He was intubated during endoscopy due to vomiting. Now extubated, doing well. -Monitor closely. Watch for infection #H-Pylori. -Amoxicillin and Clarithromycin -PPI #Erosive Esophagitis: likely due to recurrent emesis. -cont PPI #N/V/D: likely due to bleeding. No Nausea or emesis currently. -antiemetics PRN #Hx of ETOH use. Denies Alcoholism or daily use, no evidence of WD #Chronic back pain with recent NSAID use -No NSAIDS #Hypothyroidism: on Levothyroxine #THC use: chronic Dispo/plan: Change status to med surge. Currently he is hemodynamically stable and no signs of active bleeding. Repeat Hg pending Subjective: no evidence of recurrent bleed. No abd pain. 2BM's, one dark. No CP, SOB, or other Objective: Vital Signs Temp Pulse Resp BP Pulse Ox 36.7 C 101 H 19 104/78 97 01/12/17 04:00 01/12/17 09:00 01/12/17 09:00 01/12/17 09:00 01/12/17 09:00 Laboratory Results 01/12/17 04:45 01/12/17 04:45 01/11/17 01/12/17 01/13/17 05:59 05:59 05:59 Intake Total 2714 Output Total 2150 Balance 564 PT 15.1 SEC (12.0-15.0) H 01/11/17 06:40 INR 1.19 (0.83-1.16) H 01/11/17 06:40 - Physical Exam Constitutional: no apparent distress, appears nourished, not in pain Eyes: PERRL, anicteric sclera, EOMI Ears, Nose, Mouth, Throat: moist mucous membranes, hearing normal, ears appear normal, no oral mucosal ulcers Cardiovascular: regular rate and rhythym, no murmur, rub, or gallop Respiratory: no respiratory distress, no rales or rhonchi, clear to auscultation Gastrointestinal: normoactive bowel sounds, soft, non-tender abdomen, no palpable masses Genitourinary: no bladder fullness Skin: warm, normal color Neurologic: AAOx3, sensation intact bilaterally Psychiatric: interacting appropriately, not anxious, not encephalopathic ICD10 Worksheet Patient Problems: Problems Problem Status Onset Dehydration Acute Syncope Acute Vomiting Acute
[2017-01-12 18:26] LABS: HEMOGLOBIN 8.1 g/dL (13.7-17.5)
[2017-01-12] MEDS: PATCH REMOVAL 1 EA PATCH TD SCH (20:59)
[2017-01-13 04:31] LABS: % IMMATURE GRANULYOCYTES 0.4 % (0.0-1.1); ABSOLUTE IMMATURE GRANULOCYTES 0.03 10^3/uL (0.00-0.10); ADD DIFF? NO; ADD MORPH? NO; ADD SCAN? NO; ATYPICAL LYMPHOCYTE FLAG 10 (0-99); FRAGMENT RBC FLAG 0 (0-99); HEMATOCRIT 23.6 % (40.0-51.0); HEMOGLOBIN 8.4 g/dL (13.7-17.5); LEFT SHIFT FLG 0 (0-99); LIPEMIA HEMOLYSIS FLAG 90 (0-99); MEAN CELL HEMOGLOBIN 31.5 pg (27.9-34.1); MEAN CELL HEMOGLOBIN CONCENTR. 35.6 g/dL (32.4-36.7); MEAN CELL VOLUME 88.4 fL (81.5-99.8); MEAN PLATELET VOLUME 8.8 fL (8.7-11.7); PLATELET CLUMPS FLAG 10 (0-99); PLATELET COUNT 212 10^3/uL (150-400); RED BLOOD CELL COUNT 2.67 10^6/uL (4.40-6.38); RED CELL DISTRIBUTION WIDTH 12.2 % (11.5-15.2)
[2017-01-13 04:38] LABS: ANION GAP 6 mEq/L (8-16); CALCIUM 8.2 mg/dL (8.5-10.4); CARBON DIOXIDE 22 mEq/l (22-31); CHLORIDE 110 mEq/L (97-110); GLOMERULAR FILTRATION RATE > 60; GLUCOSE 96 mg/dL (70-100); POTASSIUM 3.8 mEq/L (3.5-5.2); SODIUM 138 mEq/L (134-144)
[2017-01-13] MEDS: LEVOTHYROXINE 150 MCG TAB PO SCH ×2 (06:47→06:48)
[2017-01-13] MEDS: LIDOCAINE 5% 1 EA PATCH TD SCH (10:29)
[2017-01-13] MEDS: CLARITHROMYCIN 500 MG TAB PO SCH ×2 (10:29→20:51)
[2017-01-13] MEDS: PANTOPRAZOLE SODIUM 40 MG in NS 100 ML IV SCH ×2 (10:39→20:50)
[2017-01-13] MEDS ORDERED: MIDAZOLAM 2 MG/2 ML VIAL ONE (12:14)
[2017-01-13] MEDS ORDERED: PROPOFOL/EMULSION 500 MG/50 ML BOTTLE IV ONE ×2 (12:16→13:09)
[2017-01-13] MEDS ORDERED: EPINEPHrine 1 MG/10 ML SYR IVP ONE (12:35)
[2017-01-13] MEDS ORDERED: fentaNYL 100 MCG/2 ML INJ ONE (13:02)
[2017-01-13 13:40] LABS: HEMATOCRIT 23.7 % (40.0-51.0); HEMOGLOBIN 8.3 g/dL (13.7-17.5)
[2017-01-13] MEDS ORDERED: ALBUMIN 25% 100 ML SOLN IV ONE ×2 (13:41→17:02)
[2017-01-13] MEDS ORDERED: IOPAMIDOL (ISOVUE-300) 100 ML BTL IV ONE ×2 (13:47→14:45)
[2017-01-13] MEDS ORDERED: HEPARIN 10,000 UNIT/10 ML MDV ONE (13:47)
[2017-01-13 13:51] LABS: INR 1.18 (0.83-1.16)
[2017-01-13 13:52] LABS: APTT 31.2 SEC (23.0-38.0)
[2017-01-13] MEDS ORDERED: PHENYLEPHRINE HCL 100 MCG/ML SYR ONE (14:07)
[2017-01-13] MEDS ORDERED: PROPOFOL 200 MG/20 ML VIAL ONE (14:25)
[2017-01-13] MEDS ORDERED: REMIFENTANIL HCL 1 MG VIAL ONE (14:25)
--- NOTE | 2017-01-13 14:29 | GPN ---
[f rep st] PROCEDURE NOTE PROCEDURE: Esophagogastroduodenoscopy with uncontrolled hemorrhage. PREOPERATIVE DIAGNOSIS: Gastrointestinal bleed/duodenal ulcer. POSTOPERATIVE DIAGNOSES: Active gastrointestinal bleeding and duodenal ulcer, status post treatment with 4 cc of epinephrine 1:10,000. Unable to control the bleeding. Patient is being transferred t o IR for angiogram and gastroduodenal artery embolization. INDICATIONS: A 51-year-old gentleman with a history of recurrent nausea, vomiting, and low back willie n, on meloxicam. Presented to the hospital with hematemesis. Underwent upper endoscopy 2 days ago. He was found to have a duodenal ulcer with visible vessel. It started actively bleeding with a la rge amount of clot. Unable to cauterized or clipped. It was injected with 11 cc of epinephrine. P atient received 2 units of packed red blood cells, was transferred to the ICU, and was on a Protonix drip. He has been stable for the last 2 days. Presented today for re-evaluation of duodenal ulcer . PHYSICAL EXAMINATION: VITAL SIGNS: Stable. LUNGS: Clear. CARDIAC: S1, S2 without murmur. PERMIT: The procedure was explained to the patient. The risks and benefits of the procedure were o utlined to the patient. Informed consent was obtained. PREOPERATIVE MEDICATIONS: General anesthesia. FINDINGS OF PROCEDURE: The patient was placed in the left lateral decubitus position. GIF-180 vide o scope was passed in the oropharynx under direct visualization to the proximal esophagus. Endoscop e was passed in the stomach, there was a large amount of fresh blood and clot in the stomach. There was clot arising out of the pylorus. Endoscope was passed through the pylorus. Briefly the ulcer was seen with a visible vessel. Subsequently there was active bleeding with a large amount of blood and clot, unable to visualize the vessel for treatment. The duodenum was blindly injected with epi nephrine 1:10,000 approximately 4 cc. There appeared to be continued active bleeding. It was decid ed to abort the procedure and transfer patient to IR. Endoscope was then withdrawn. Patient was he modynamically stable, but was intubated by Anesthesia. Family was called emergently and Dr. Joseph was consulted. IMPRESSION: Active duodenal ulcer with active bleeding and an unsuccessful attempt at endoscopic ma nagement. RECOMMENDATIONS: Patient to be transfuse 2 units of packed red blood cells and emergently taken to Interventional Radiology for angiogram and GDA embolization. /[id number]/MODL
[2017-01-13] MEDS ORDERED: NEOSTIGMINE METHYLSULFATE 5 MG/5 ML SYR ONE (14:48)
[2017-01-13 16:29] LABS: HEMATOCRIT 21.7 % (40.0-51.0); HEMOGLOBIN 7.6 g/dL (13.7-17.5)
[2017-01-13] MEDS ORDERED: NS 1,000 ML IV ONE (16:40)
--- NOTE | 2017-01-13 16:40 | HOSPPROG ---
Hospitalist Progress Note Assessment/Plan: * UGIB - duodenal ulcer with visible vessel -failed tx by EGD - s/p IR gastroduodenal artery embolization -stop meloxicam -H pylori positive - on abx -IV PPI BID * Hemorrhagic shock -IVF, serial HH, transfuse prn * Chronic back pain -DC NSAIDS * Pyloric stenosis tx as infant * Tobacco dependence Subjective: just returned from IR for embolization Objective: Vital Signs Temp Pulse Resp BP Pulse Ox 36.5 C 100 40 H 114/75 98 01/13/17 08:00 01/13/17 08:00 01/13/17 08:00 01/13/17 08:00 01/13/17 08:00 Laboratory Results 01/13/17 16:12 01/13/17 04:20 01/12/17 01/13/17 01/14/17 05:59 05:59 05:59 Intake Total 2714 880 Output Total 2150 Balance 564 880 PT 15.0 SEC (12.0-15.0) 01/13/17 13:25 INR 1.18 (0.83-1.16) H 01/13/17 13:25 High risk - hypotension - needs active resuscitation - Physical Exam Constitutional: no apparent distress, appears nourished, not in pain Cardiovascular: regular rate and rhythym, no murmur, rub, or gallop Respiratory: no respiratory distress, no rales or rhonchi, clear to auscultation Gastrointestinal: normoactive bowel sounds, soft, non-tender abdomen, no palpable masses Skin: no rashes or abrasions, no fluctuance, no induration Neurologic: AAOx3, sensation intact bilaterally Psychiatric: interacting appropriately, not anxious, not encephalopathic, thought process linear ICD10 Worksheet Patient Problems: Problems Problem Status Onset Dehydration Acute Syncope Acute Vomiting Acute
[2017-01-13] MEDS ORDERED: NS 1,000 ML IV SCH (16:45)
[2017-01-13] MEDS ORDERED: ALBUMIN 25% 100 ML IV ONE (16:52)
--- NOTE | 2017-01-13 17:50 | GCON ---
[f rep st] CONSULTATION CRITICAL CARE CONSULTATION HISTORY OF PRESENT ILLNESS: The patient is a 51-year-old male with a history of, I believe, peptic ulcer disease in the past who was admitted a couple of days ago with an upper GI bleed. He has a hi story of chronic low back pain and has been taking nonsteroidal anti-inflammatory medications on top of tobacco and alcohol and developed nausea and vomiting. He was apparently seen in the emergency department, given IV fluids and sent home about 4 days prior to admission. He continued to have glenn sea and vomiting and then developed diarrhea, hematemesis and an episode of syncope. He came in at that time and was found to be anemic, underwent endoscopy where a duodenal ulcer was visualized, alt zenia apparently not all that well. He required intubation for the procedure but was extubated shor tly there afterwards and was injected with epinephrine. He appeared to be relatively stable, at jake t time, but had increasing problems with lowering hematocrits, had a rescope done today, and it was difficult to see past the pylorus, and there was a blind injection done, but he was having active bl eeding. Subsequently went to Interventional Radiology where embolization was performed. This was d one without difficulty. Reports are not currently available at this time, and he subsequently retur anika to the intensive care unit for closer monitoring. He was marginally hypoxic on room air, but fe lt relatively stable. His biggest complaint was about his chronic back pain which is bothering him. He requested an ice pack for his back. REVIEW OF SYSTEMS: Otherwise negative. PAST MEDICAL HISTORY: 1. Includes chronic low back pain as described above. 2. A recent upper respiratory infection. 3. Hypothyroidism. 4. Vitamin D deficiency. 5. Peptic ulcer disease and recurrent GI bleed. REVIEW OF SYSTEMS: Otherwise negative except for recent weight loss. PAST SURGICAL HISTORY: None. CURRENT MEDICATIONS: Include Tylenol, amoxicillin, Biaxin, Flexeril, Synthroid, Zofran, pantoprazol e, Phenergan p.r.n. EXAM: VITAL SIGNS: He was afebrile. Heart rate was 100, blood pressure was 88/60 and respirations of about 15, oxygen saturation 98% on high-flow simple mask. GENERAL: He was somnolent but arouse d appropriately and answered questions well and was able to speak in full sentences without using ac cessory muscles for breathing. HEENT: Pupils are equally round and reactive to light and nonicteri c and noninjected. Mucous membranes are moist without erythema or exudate. LUNGS: Breath sounds w ere clear to auscultation bilaterally without wheezes, rubs or rales. HEART: Regular rate and rhyt hm without murmurs, rubs, gallops. ABDOMEN: Remarkably soft, nontender, nondistended without hepat osplenomegaly but hypoactive bowel sounds. EXTREMITIES: Show no clubbing, cyanosis, or edema. JENNA ROLOGIC: Nonfocal, including cranial nerves and deep tendon reflexes. SKIN: Warm and dry without evidence of rash. OBJECTIVE DATA: Includes labs, the most recent hematocrit was 21.7; this was drawn at 1600; it was 23.7 at noon and 23.6 at 0400. INR was 1.18 earlier today. Basic metabolic panel was unremarkable. ASSESSMENT/PLAN: 1. Upper gastrointestinal bleed that required embolization today. His hematocrit is low and his bl ood pressure is a little bit soft, so I think that transfusing additional blood at this time would b e appropriate. His INR was normal as was his platelet counts. I do not feel that additional blood products would be required at this time, but I would also continue with q.4 hour hemoglobins and hem atocrits over the next 24 hours. In addition, he is on a proton pump inhibitor drip which is certai nly appropriate at this time. I do not feel that octreotide is indicated unless it was requested by Gastroenterology. Would certainly keep him n.p.o. at this time. I believe H pylori has been sent and apparently is already being treated. 2. Hypoxemia. This is likely due to relative hypoventilation, and if his oxygenation does not impr ove rapidly, we can certainly work this up further with imaging to look for evidence of aspiration, but it took very little oxygen to normalize his saturations. A total of about 35 minutes of critical care time was required to evaluate this patient who is rah ericka stable with recurrent gastrointestinal bleeding. /[id number]/MODL
[2017-01-13 20:45] LABS: HEMATOCRIT 27.6 % (40.0-51.0); HEMOGLOBIN 9.8 g/dL (13.7-17.5)
[2017-01-13] MEDS: PATCH REMOVAL 1 EA PATCH TD SCH (20:51)
[2017-01-13] MEDS: ONDANSETRON 4 MG/2 ML VIAL IVP PRN (21:24)
[2017-01-14] MEDS: CYCLOBENZAPRINE 10 MG TAB PO PRN ×2 (00:36→21:43)
[2017-01-14 00:51] LABS: HEMATOCRIT 25.1 % (40.0-51.0)
[2017-01-14 04:41] LABS: % IMMATURE GRANULYOCYTES 0.3 % (0.0-1.1); ABSOLUTE IMMATURE GRANULOCYTES 0.05 10^3/uL (0.00-0.10); ADD DIFF? NO; ADD MORPH? NO; ADD SCAN? NO; ATYPICAL LYMPHOCYTE FLAG 10 (0-99); FRAGMENT RBC FLAG 0 (0-99); HEMATOCRIT 24.6 % (40.0-51.0); HEMOGLOBIN 8.9 g/dL (13.7-17.5); LEFT SHIFT FLG 10 (0-99); LIPEMIA HEMOLYSIS FLAG 90 (0-99); MEAN CELL HEMOGLOBIN CONCENTR. 36.2 g/dL (32.4-36.7); MEAN CELL VOLUME 85.7 fL (81.5-99.8); MEAN PLATELET VOLUME 9.4 fL (8.7-11.7); PLATELET CLUMPS FLAG 10 (0-99); PLATELET COUNT 164 10^3/uL (150-400); RED BLOOD CELL COUNT 2.87 10^6/uL (4.40-6.38); RED CELL DISTRIBUTION WIDTH 14.9 % (11.5-15.2)
[2017-01-14 04:59] LABS: ANION GAP 8 mEq/L (8-16); CALCIUM 8.4 mg/dL (8.5-10.4); CARBON DIOXIDE 17 mEq/l (22-31); CHLORIDE 109 mEq/L (97-110); GLOMERULAR FILTRATION RATE > 60; GLUCOSE 114 mg/dL (70-100); POTASSIUM 4.3 mEq/L (3.5-5.2); SODIUM 134 mEq/L (134-144)
[2017-01-14] MEDS: LEVOTHYROXINE 150 MCG TAB PO SCH (06:48)
[2017-01-14 08:29] LABS: HEMATOCRIT 22.7 % (40.0-51.0); HEMOGLOBIN 8.2 g/dL (13.7-17.5)
[2017-01-14] MEDS ORDERED: NICOTINE 7 MG/24 HR PATCH TD SCH (09:00)
[2017-01-14] MEDS: CLARITHROMYCIN 500 MG TAB PO SCH ×2 (09:34→21:43)
[2017-01-14] MEDS: AMOXICILLIN 400 MG/5 ML BTL PO SCH ×2 (09:34→21:43)
[2017-01-14] MEDS: PANTOPRAZOLE SODIUM 40 MG in NS 100 ML IV SCH ×2 (09:35→21:43)
[2017-01-14] MEDS: LIDOCAINE 5% 1 EA PATCH TD SCH (09:35)
--- NOTE | 2017-01-14 12:46 | PDINTPN ---
Barrel Assembler Progress Note Assessment/Plan: Assessment/plan: 51 M with minimal PMH admitted with UGIB. He initially underwent EGD where visualization was difficult but was found to have a DU with visible vessel. He was injected but continued to bleed and required a second EGD. He was again injected but eventually went to IR for embolization. He is getting treated for H. pylori. His BP has been marginal and responds to blood products and fluids. * Bleeding DU s/p several propcedures so far. His h/h continues to drift downward and his net i/o is negative. He is mildly tachycardic but has little to no abdominal complaints. Hard to tell if he is actively bleeding still or we are just catching up with his total RBC requirements. Dr. Joseph is aware of the situation and surgery has been consulted in case that is necessary. Transfused 2 units RBCs this AM and continue with q4 hour h/h. Keep NPO. Continue PPI BID. * Anemia- 2/2 above * hypotension- he has responded well to volume. No pressors needed at this time. Subjective: Feels well- denies abdominalpain, n/v, hemetemesis. S/P IR embolization. Objective: Vital Signs Temp Pulse Resp BP Pulse Ox 37.2 C 92 18 94/65 L 95 01/13/17 16:00 01/14/17 06:00 01/14/17 06:00 01/14/17 06:00 01/14/17 06:00 Laboratory Results 01/14/17 08:08 01/14/17 04:20 01/13/17 01/14/17 01/15/17 05:59 05:59 05:59 Intake Total 880 2265 Output Total 2500 600 Balance 880 -235 -600 PT 15.0 SEC (12.0-15.0) 01/13/17 13:25 INR 1.18 (0.83-1.16) H 01/13/17 13:25 Physical Exam - Physical Exam General Appearance: alert, no apparent distress EENT: PERRL/EOMI Neck: full range of motion, supple Respiratory: lungs clear, normal breath sounds, No respiratory distress Abdomen: non-tender, soft, No distended, No guarding Skin: normal color, warm/dry, No cyanosis Lymphatic: no adenopathy Extremities: non-tender, No pedal edema Neuro/Psych: alert, normal mood/affect, oriented x 3 ICD10 Worksheet Patient Problems: Problems Problem Status Onset Dehydration Acute Syncope Acute Vomiting Acute
--- NOTE | 2017-01-14 13:24 | SOAPPROG ---
[facility] Progress Note Assessment/Plan: Assessment:Plan: 1) DU with acute rebleed, requiring IR intervention - no obvious further bleeding, no BM today, BID PPI IV , f/u h pylori s/p tx -- wait three months post abx tx, off PPI for 2 weeks, then check stool AG. If positive, retreat 2) Anemia - s/p PRBC's x 2 with little increase in Hb/HCT - I think all equilibration, BUN/Cr up from yesterday am but not as high as with prev bleed 3) Diet - if Hb stable will order clears later today If any obvious rebleed - repeat IR angio If they cannot stop bleeding, then surgery Subjective: cc- UGI bleed form large DU from NSAID's and h pylori, requring IR tx of DU pt feeling OK no Bm no n/v, no overt rebleed after IR treatment Objective: Vital Signs Temp Pulse Resp BP Pulse Ox 37.2 C 92 18 94/65 L 95 01/13/17 16:00 01/14/17 06:00 01/14/17 06:00 01/14/17 06:00 01/14/17 06:00 Laboratory Results 01/14/17 04:20 01/13/17 01/14/17 01/15/17 05:59 05:59 05:59 Intake Total 880 2265 Output Total 2500 600 Balance 880 -235 -600 PT 15.0 SEC (12.0-15.0) 01/13/17 13:25 INR 1.18 (0.83-1.16) H 01/13/17 13:25 A+Ox3 CTA S1S2, RRR +BS, soft, NT Laboratory Tests 01/11/17 01/12/17 01/13/17 06:40 04:45 04:20 Hgb Hct BUN 41 H 21 Creatinine 0.9 1.0 H. pylori IgG Antibody POSITIVE H 01/13/17 01/13/17 01/14/17 16:12 20:40 00:30 Hgb 7.6 L 9.8 L 9.0 L Hct 21.7 L 27.6 L 25.1 L BUN Creatinine H. pylori IgG Antibody 01/14/17 01/14/17 01/14/17 04:20 04:20 08:08 Hgb 8.9 L 8.2 L Hct 24.6 L 22.7 L BUN 29 H Creatinine 1.0 H. pylori IgG Antibody ICD10 Worksheet Patient Problems: Problems Problem Status Onset Dehydration Acute Syncope Acute Vomiting Acute
[2017-01-14 13:30] LABS: HEMATOCRIT 29.2 % (40.0-51.0); HEMOGLOBIN 10.6 g/dL (13.7-17.5)
--- NOTE | 2017-01-14 15:19 | GCON ---
[f rep st] CONSULTATION DATE OF CONSULTATION: 01/14/2017 CHIEF COMPLAINT: Upper GI bleed. HISTORY OF PRESENT ILLNESS: This is a 51-year-old male admitted to the medical service since the of this month. 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 After 1 week of starting this therapy, he developed nausea and vomiting with difficulty tolerating p.o. H e subsequently presented to the emergency department, at that time, where he was hydrated and subseq uently discharged to home. The symptoms persisted, in addition to developing diarrhea. He subseque ntly presented back to the emergency department after becoming lightheaded on the , and on al had an episode of hematemesis with clots and did have a syncopal episode. [facility] and has been in the intensive care unit for close he modynamic monitoring. He subsequently underwent upper endoscopy by Gastroenterology on the whe re an actively bleeding duodenal ulcer, at that time treated with epinephrine, was performed. This was subsequently unsuccessful. The patient continued to have hematemesis and drifting hemoglobin an d hematocrit levels. He was subsequently taken to the angio suite initially yesterday on the er Dr. Joseph where he successfully underwent transcatheter embolization of a large 2 mm bleeder coming off the gastroduodenal artery where it was successfully coiled. He has subsequently been transferr ed back to the intensive care unit at that time. His hemoglobin levels continue to drift, although his vitals have been stable with blood pressures in the high 90s to low 100s and has not been tachyc ardic. On my examination today, he does not have any hematemesis. Denies having any abdominal pain and overall feels well and actually wants to eat. PAST MEDICAL HISTORY: Pyloric stenosis. Chronic back pain. Hypothyroidism. History of peptic ulc er disease. PAST SURGICAL HISTORY: Open pyloric stenosis repair as a child and left knee surgery. FAMILY HISTORY: Dad was an alcoholic, had a history of hepatitis. His recently left him with his 2 children, and he has been under a lot of stress. SOCIAL HISTORY: He smokes. He does drink socially and use marijuana. MEDICATIONS: Full med reconciliation was reviewed in [employer]. REVIEW OF SYSTEMS: A full 10-point review was performed and unless explicitly stated above is other carrillo negative. PHYSICAL EXAM: VITAL SIGNS: Blood pressure 94/65, heart rate 92, and he is 95% on room air. GENER AL: He is alert and oriented, in no acute distress. LUNGS: Clear to auscultation bilaterally. CA RDIOVASCULAR: He has a regular rate and rhythm without any murmurs. ABDOMEN: Soft, nondistended, nontender. Paramedian scar to the right of the umbilicus, consistent with previous surgical history . EXTREMITIES: Warm and well perfused. LABORATORY DATA: Most recent H and H is 10 and 29 from this morning and 8 and 22. The remainder of his chemistries show a BUN of 29 and a creatinine of 1.0. IMAGING: His angio and upper endoscopy were reviewed. ASSESSMENT AND PLAN: A 51-year-old male with peptic ulcer, duodenal ulcer bleed. It appears as tho ugh the patient is currently not bleeding, and his transcatheter embolization was successful. Will continue to monitor closely as the patient is running out of conservative options. Do agree with co ntinuing high-dose PPI as well as Helicobacter pylori treatment for which he was positive. I will h ave a discussion with the interventional radiologist. In the case that the patient does bleed again , I do feel that he warrants likely another look to see if there is anything else that can be dealt with interventionally. If the patient continues to fail conservative treatment, at that point in ti me he will require operative celiotomy for suture ligation of the duodenal bleed. I did discuss thi s with the patient. He understands. He overall feels well and has a good understanding of what his clinical course looks like. /[id number]/MODL
--- NOTE | 2017-01-14 15:22 | HOSPPROG ---
Hospitalist Progress Note Assessment/Plan: * UGIB - duodenal ulcer with visible vessel -failed tx by EGD - s/p IR gastroduodenal artery embolization -HH and BP tenuous -IR and surgery following for repeat intervention if re-bleed -stop meloxicam -H pylori positive - on abx -IV PPI BID * Hemorrhagic shock -IVF, serial HH, transfuse prn * ABL anemia - follow * Chronic back pain -DC NSAIDS * Pyloric stenosis tx as infant Subjective: No complaints, no abd pain Objective: Vital Signs Temp Pulse Resp BP Pulse Ox 37.2 C 92 18 94/65 L 95 01/13/17 16:00 01/14/17 06:00 01/14/17 06:00 01/14/17 06:00 01/14/17 06:00 Laboratory Results 01/14/17 13:15 01/14/17 04:20 01/13/17 01/14/17 01/15/17 05:59 05:59 05:59 Intake Total 880 2265 Output Total 2500 600 Balance 880 -235 -600 PT 15.0 SEC (12.0-15.0) 01/13/17 13:25 INR 1.18 (0.83-1.16) H 01/13/17 13:25 case d/w Dr. Joseph, Dr. Tate and Dr. Cross - unclear if still bleeding or re -equilibration tele reviewed - NSR - Physical Exam Constitutional: no apparent distress, appears nourished, not in pain Cardiovascular: regular rate and rhythym, no murmur, rub, or gallop Respiratory: no respiratory distress, no rales or rhonchi, clear to auscultation Gastrointestinal: normoactive bowel sounds, soft, non-tender abdomen, no palpable masses Skin: no rashes or abrasions, no fluctuance, no induration Neurologic: AAOx3, sensation intact bilaterally Psychiatric: interacting appropriately, not anxious, not encephalopathic, thought process linear ICD10 Worksheet Patient Problems: Problems Problem Status Onset Dehydration Acute Syncope Acute Vomiting Acute
--- NOTE | 2017-01-14 16:37 | SOAPPROG ---
SOAP Progress Note Assessment/Plan: Assessment: Post GDA embolization for large active bleed. Dislodged coil in COOPER as a linear wire, not as a coil pack. Prolonged attempt at removing this yesterday during emergent case without success. No evidence for thrombus formation what so ever on US. Labs and today's events noted. Plan: 1. No need to retrieve NOONAN coil, which would require arm approach. Over time it would simply be incorportated into NOONAN wall. If it were to cause thrombosis, it would have done so by now. 2. If clinically still bleeding, can re-evaluate GDA retrograde/collateral flow from SMA. 01/14/17 16:31 Objective: Vital Signs Temp Pulse Resp BP Pulse Ox 37.2 C 92 18 94/65 L 95 01/13/17 16:00 01/14/17 06:00 01/14/17 06:00 01/14/17 06:00 01/14/17 06:00 Laboratory Results 01/14/17 13:15 01/14/17 04:20 01/13/17 01/14/17 01/15/17 05:59 05:59 05:59 Intake Total 880 2265 Output Total 2500 600 Balance 880 -235 -600 PT 15.0 SEC (12.0-15.0) 01/13/17 13:25 INR 1.18 (0.83-1.16) H 01/13/17 13:25 RUQ doppler US of liver shows widely patient NOONAN and it's branches. ICD10 Worksheet Patient Problems: Problems Problem Status Onset Dehydration Acute Syncope Acute Vomiting Acute
[2017-01-14 18:14] LABS: HEMOGLOBIN 10.9 g/dL (13.7-17.5)
[2017-01-14] MEDS: PATCH REMOVAL 1 EA PATCH TD SCH (21:58)
[2017-01-14 21:59] LABS: HEMATOCRIT 29.3 % (40.0-51.0); HEMOGLOBIN 10.7 g/dL (13.7-17.5)
[2017-01-15 01:55] LABS: HEMATOCRIT 28.6 % (40.0-51.0); HEMOGLOBIN 10.5 g/dL (13.7-17.5)
[2017-01-15 02:14] LABS: ANION GAP 8 mEq/L (8-16); CALCIUM 8.4 mg/dL (8.5-10.4); CARBON DIOXIDE 22 mEq/l (22-31); CHLORIDE 107 mEq/L (97-110); GLOMERULAR FILTRATION RATE > 60; GLUCOSE 102 mg/dL (70-100); POTASSIUM 3.8 mEq/L (3.5-5.2); SODIUM 137 mEq/L (134-144)
[2017-01-15 05:53] LABS: % IMMATURE GRANULYOCYTES 0.6 % (0.0-1.1); ADD DIFF? NO; ADD MORPH? NO; ADD SCAN? NO; ATYPICAL LYMPHOCYTE FLAG 0 (0-99); FRAGMENT RBC FLAG 0 (0-99); HEMATOCRIT 31.9 % (40.0-51.0); HEMOGLOBIN 11.4 g/dL (13.7-17.5); LEFT SHIFT FLG 0 (0-99); LIPEMIA HEMOLYSIS FLAG 90 (0-99); MEAN CELL HEMOGLOBIN 29.8 pg (27.9-34.1); MEAN CELL HEMOGLOBIN CONCENTR. 35.7 g/dL (32.4-36.7); MEAN CELL VOLUME 83.3 fL (81.5-99.8); MEAN PLATELET VOLUME 8.9 fL (8.7-11.7); PLATELET CLUMPS FLAG 0 (0-99); PLATELET COUNT 186 10^3/uL (150-400); RED BLOOD CELL COUNT 3.83 10^6/uL (4.40-6.38)
[2017-01-15] MEDS: LEVOTHYROXINE 150 MCG TAB PO SCH (09:04)
[2017-01-15] MEDS: PANTOPRAZOLE SODIUM 40 MG in NS 100 ML IV SCH ×2 (09:05→21:02)
[2017-01-15] MEDS: LIDOCAINE 5% 1 EA PATCH TD SCH (09:05)
[2017-01-15] MEDS: AMOXICILLIN 400 MG/5 ML BTL PO SCH (09:05)
[2017-01-15] MEDS: CLARITHROMYCIN 500 MG TAB PO SCH ×2 (09:05→21:01)
[2017-01-15 09:10] LABS: HEMATOCRIT 29.6 % (40.0-51.0); HEMOGLOBIN 10.6 g/dL (13.7-17.5)
--- NOTE | 2017-01-15 11:44 | SOAPPROG ---
SOAP Progress Note Assessment/Plan: Assessment: Plan: 01/15/17 11:41 A/P 1. Duodenal ulcer- with rebleed. IR with coiling. + H. pylori on treatment. Had 2 small BMs last night. Less black than before. No obvious signs of ongoing GI bleed. Recommend to continue PPI BID. Will need stool antigen testing for H. pylori as outpatient. If rebleed, consider IR evaluation? GI will sign off. Thank you for the consultation! Subjective: cc: Follow up GI bleed 2 small BMs last night. Denies any abdominal pain. Objective: Vital Signs Temp Pulse Resp BP Pulse Ox 37.1 C 107 H 30 H 106/66 97 01/15/17 08:00 01/15/17 11:00 01/15/17 11:00 01/15/17 11:00 01/15/17 11:00 Laboratory Results 01/15/17 09:00 01/15/17 01:45 01/14/17 01/15/17 01/16/17 05:59 05:59 05:59 Intake Total 2265 3017 Output Total 2500 3150 Balance -235 -133 PT 15.0 SEC (12.0-15.0) 01/13/17 13:25 INR 1.18 (0.83-1.16) H 01/13/17 13:25 Physical Exam - Physical Exam General Appearance: alert, no apparent distress EENT: No scleral icterus (R), No scleral icterus (L) Respiratory: lungs clear, normal breath sounds, No rales, No rhonchi Cardiac/Chest: regular rate, rhythm, No diastolic murmur, No systolic murmur Abdomen: normal bowel sounds, non-tender, soft, No distended, No guarding, No rebound Skin: normal color, warm/dry Extremities: normal inspection Neuro/Psych: normal mood/affect, oriented x 3, No abnormal garde manager II-XII ICD10 Worksheet Patient Problems: Problems Problem Status Onset Vomiting Acute Dehydration Acute Syncope Acute
--- NOTE | 2017-01-15 13:28 | PDINTPN ---
Construction Analyst Progress Note Assessment/Plan: Assessment/plan: 51 M with minimal PMH admitted with UGIB. He initially underwent EGD where visualization was difficult but was found to have a DU with visible vessel. He was injected but continued to bleed and required a second EGD. He was again injected but eventually went to IR for embolization. He is getting treated for H. pylori. His BP has been marginal and responds to blood products and fluids. * Aspiration pneumonia - increased WBC and infiltrates on CXR are consistent as is clinical history. Started Zosyn (despite H pylori Rx) today and FU sputum culture. O2 prn. * Bleeding DU- s/p EGD x 2 plus embolization with apparent stabilization. Never needed additional procedure. Follow H/H * Anemia- 2/2 above * hypotension- he has responded well to volume. No pressors needed at this time. 01/15/17 13:24 Subjective: c/o increased cough without sputum, mild sob. Objective: Vital Signs Temp Pulse Resp BP Pulse Ox 36.9 C 109 H 30 H 99/59 L 95 01/15/17 12:00 01/15/17 12:00 01/15/17 12:00 01/15/17 12:00 01/15/17 12:00 Laboratory Results 01/15/17 09:00 01/15/17 01:45 01/14/17 01/15/17 01/16/17 05:59 05:59 05:59 Intake Total 2265 3017 Output Total 2500 3150 Balance -235 -133 PT 15.0 SEC (12.0-15.0) 01/13/17 13:25 INR 1.18 (0.83-1.16) H 01/13/17 13:25 Physical Exam - Physical Exam General Appearance: WD/WN, alert, no apparent distress Neck: full range of motion, supple Respiratory: crackles (few), No respiratory distress Cardiac/Chest: normal peripheral pulses, regular rate, rhythm, No edema Abdomen: non-tender, soft, No distended, No guarding Skin: normal color, warm/dry, No cyanosis Lymphatic: no adenopathy Extremities: non-tender, No pedal edema Neuro/Psych: alert, normal mood/affect, oriented x 3 ICD10 Worksheet Patient Problems: Problems Problem Status Onset Dehydration Acute Syncope Acute Vomiting Acute
[2017-01-15] MEDS: PIPERACILLIN/TAZO 3.375 GM/DEX 50 ML IV SCH ×2 (13:29→21:03)
[2017-01-15 14:02] LABS: COLOR YELLOW; LEUKOCYTE ESTERASE,URINE NEGATIVE (NEGATIVE); NITRITE,URINE NEGATIVE (NEGATIVE)
--- NOTE | 2017-01-15 16:05 | HOSPPROG ---
Hospitalist Progress Note Assessment/Plan: Assessment: 51-year-old male presents with acute upper gastrointestinal hemorrhage secondary to duodenal ulcer in the setting of H pylori, complicated by aspiration pneumonia Plan: 1. UGIB. Acute, 2/2 duodenal ulcer with visible vessel - failed tx by EGD - s/p IR gastroduodenal artery embolization, GDA coil migrated to NOONAN - off meloxicam - IV PPI - monitor Hgb 2. Hemorrhagic shock. S/p IVF 3. Acute Blood Loss anemia. Monitoring Hgb 4. Chronic back pain. Off NSAIDs 5. H pylori infection. On PPI and Abx 6. Aspiration Pneumonia. Acute, new problem to this provider, further w/u indicated. Getting CXR, has LLL infiltrate on personal interpretation - d/w Dr. Cross, we both agree that Zosyn is good initial Abx given that he has been hospitalized 72hrs, if not effective, then add Vanco - get sputum Cx - monitor CBC Diet. Regular PPx. High risk, SCDs Code. Full Dispo. ADD uncertain, pending stability of above Subjective: Patient reports ongoing sputum production, cough Objective: Vital Signs Temp Pulse Resp BP Pulse Ox 36.9 C 112 H 40 H 94/62 L 92 01/15/17 12:00 01/15/17 15:00 01/15/17 15:00 01/15/17 15:00 01/15/17 15:00 Laboratory Results 01/15/17 09:00 01/15/17 01:45 01/14/17 01/15/17 01/16/17 05:59 05:59 05:59 Intake Total 2265 3017 Output Total 2500 3150 1180 Balance -235 -133 -1180 PT 15.0 SEC (12.0-15.0) 01/13/17 13:25 INR 1.18 (0.83-1.16) H 01/13/17 13:25 - Physical Exam Constitutional: no apparent distress, appears nourished, not in pain, No uncomfortable Cardiovascular: regular rate and rhythym, no murmur, rub, or gallop, No irregularly irregular, No edema Respiratory: reduced air movement (Left inferior posterior segment), rhonchi ( On inspiration left posterior lung), No expiratory wheeze, No bronchial breath sounds, No respiratory distress Gastrointestinal: normoactive bowel sounds, soft, non-tender abdomen, no palpable masses Neurologic: AAOx3, sensation intact bilaterally Psychiatric: interacting appropriately, not anxious, not encephalopathic, thought process linear ICD10 Worksheet Patient Problems: Problems Problem Status Onset Vomiting Acute Dehydration Acute Syncope Acute
--- NOTE | 2017-01-15 16:40 | SOAPPROG ---
SOSHANE Progress Note Assessment/Plan: Assessment: 51 MALE WITH THE BLEEDING DUODENAL ULCER TREATED IN IR FOR EMBOLIZATION / STABLE TODAY WITH NO EVIDENCE OF BLEEDING / HEMATOCRIT STABLE AROUND 29-30 ABDOMEN SOFT AND NONTENDER Plan: CONTINUE OBSERVATION 01/15/17 16:38 Objective: Vital Signs Temp Pulse Resp BP Pulse Ox 36.3 C 110 H 30 H 92/64 L 96 01/15/17 16:00 01/15/17 16:00 01/15/17 16:00 01/15/17 16:00 01/15/17 16:00 Laboratory Results 01/15/17 09:00 01/15/17 01:45 01/14/17 01/15/17 01/16/17 05:59 05:59 05:59 Intake Total 2265 3017 Output Total 2500 3150 1180 Balance -235 -133 -1180 PT 15.0 SEC (12.0-15.0) 01/13/17 13:25 INR 1.18 (0.83-1.16) H 01/13/17 13:25 ICD10 Worksheet Patient Problems: Problems Problem Status Onset Dehydration Acute Syncope Acute Vomiting Acute
[2017-01-15] MEDS ORDERED: IPRATROPIUM/ALBUTEROL 3 ML DEYVIAL IH PRN (17:49)
[2017-01-15] MEDS: guaiFENesin 600 MG TAB.ER PO SCH ×2 (18:47→21:03)
[2017-01-15] MEDS: CYCLOBENZAPRINE 10 MG TAB PO PRN (21:02)
[2017-01-15] MEDS: guaiFENesin/CODEINE PHOS 10 ML UDCUP PO PRN (21:03)
[2017-01-15] MEDS: PATCH REMOVAL 1 EA PATCH TD SCH (21:03)
[2017-01-16 04:28] LABS: % IMMATURE GRANULYOCYTES 0.7 % (0.0-1.1); ABSOLUTE IMMATURE GRANULOCYTES 0.11 10^3/uL (0.00-0.10); ADD DIFF? NO; ADD MORPH? NO; ADD SCAN? NO; ATYPICAL LYMPHOCYTE FLAG 0 (0-99); FRAGMENT RBC FLAG 0 (0-99); HEMATOCRIT 28.4 % (40.0-51.0); HEMOGLOBIN 9.8 g/dL (13.7-17.5); LEFT SHIFT FLG 0 (0-99); LIPEMIA HEMOLYSIS FLAG 90 (0-99); MEAN CELL HEMOGLOBIN 30.1 pg (27.9-34.1); MEAN CELL HEMOGLOBIN CONCENTR. 34.5 g/dL (32.4-36.7); MEAN CELL VOLUME 87.1 fL (81.5-99.8); MEAN PLATELET VOLUME 9.1 fL (8.7-11.7); PLATELET CLUMPS FLAG 10 (0-99); PLATELET COUNT 159 10^3/uL (150-400); RED BLOOD CELL COUNT 3.26 10^6/uL (4.40-6.38); RED CELL DISTRIBUTION WIDTH 15.6 % (11.5-15.2)
[2017-01-16 04:42] LABS: ANION GAP 8 mEq/L (8-16); CALCIUM 8.4 mg/dL (8.5-10.4); CARBON DIOXIDE 21 mEq/l (22-31); CHLORIDE 105 mEq/L (97-110); CREATININE 0.9 mg/dL (0.7-1.3); GLOMERULAR FILTRATION RATE > 60; GLUCOSE 109 mg/dL (70-100); POTASSIUM 3.8 mEq/L (3.5-5.2); SODIUM 134 mEq/L (134-144)
[2017-01-16] MEDS: PIPERACILLIN/TAZO 3.375 GM/DEX 50 ML IV SCH ×2 (06:11→15:20)
[2017-01-16] MEDS: PANTOPRAZOLE SODIUM 40 MG in NS 100 ML IV SCH (08:56)
[2017-01-16] MEDS: LEVOTHYROXINE 150 MCG TAB PO SCH (08:57)
[2017-01-16] MEDS: LIDOCAINE 5% 1 EA PATCH TD SCH (09:55)
[2017-01-16] MEDS: guaiFENesin 600 MG TAB.ER PO SCH ×2 (09:55→21:54)
[2017-01-16] MEDS: CLARITHROMYCIN 500 MG TAB PO SCH ×2 (09:55→21:54)
--- NOTE | 2017-01-16 14:09 | HOSPPROG ---
Hospitalist Progress Note Assessment/Plan: Assessment: 51-year-old male presents with acute upper gastrointestinal hemorrhage secondary to duodenal ulcer in the setting of H pylori, complicated by aspiration pneumonia Plan: 1. UGIB. Acute, 2/2 duodenal ulcer with visible vessel - failed tx by EGD - s/p IR gastroduodenal artery embolization, GDA coil migrated to NOONAN - off meloxicam - IV PPI, adjusted to PO - monitor Hgb - adv diet to regular and gauge response 2. Hemorrhagic shock. S/p IVF 3. Acute Blood Loss anemia. Monitoring Hgb 4. Chronic back pain. Off NSAIDs, lidoderm patch trial 5. H pylori infection. On PPI and Abx 6. Aspiration Pneumonia. Acute, CXR has LLL infiltrate - cont w/ zosyn, monitor CBC - if tachycardia persists or WBC rising, adjust to q6 4.5g dosing - sputum cx w/ WBC Diet. Regular PPx. High risk, SCDs Code. Full Dispo. ADD uncertain, pending stability of above Subjective: Patient with ongoing chest congestion, cough with expiration, using incentive spirometer Objective: Vital Signs Temp Pulse Resp BP Pulse Ox 36.9 C 100 27 H 96/59 L 96 01/16/17 13:00 01/16/17 13:00 01/16/17 13:00 01/16/17 13:00 01/16/17 13:00 Microbiology 01/15/17 11:55 - Final Sputum, Expectorated Laboratory Results 01/16/17 04:15 01/16/17 04:15 01/15/17 01/16/17 01/17/17 05:59 05:59 05:59 Intake Total 3017 2165 Output Total 3150 2780 Balance -133 -615 PT 15.0 SEC (12.0-15.0) 01/13/17 13:25 INR 1.18 (0.83-1.16) H 01/13/17 13:25 - Physical Exam Constitutional: no apparent distress, appears nourished, not in pain Cardiovascular: regular rate and rhythym, no murmur, rub, or gallop, No edema Respiratory: reduced air movement (Shortened expiratory phase bilaterally), rhonchi (On inspiration on left posterior), No expiratory wheeze, No bronchial breath sounds Gastrointestinal: normoactive bowel sounds, soft, non-tender abdomen, no palpable masses Neurologic: AAOx3, sensation intact bilaterally Psychiatric: interacting appropriately, not anxious, not encephalopathic, thought process linear ICD10 Worksheet Patient Problems: Problems Problem Status Onset Vomiting Acute Dehydration Acute Syncope Acute
--- NOTE | 2017-01-16 14:54 | PDINTPN ---
Inspector Purchased Parts Progress Note Assessment/Plan: Assessment/plan: 51 M with minimal PMH admitted with UGIB. He initially underwent EGD where visualization was difficult but was found to have a DU with visible vessel. He was injected but continued to bleed and required a second EGD. He was again injected but eventually went to IR for embolization. He is getting treated for H. pylori. His BP has been marginal and responds to blood products and fluids. * Aspiration pneumonia - Sputum culture is suboptimal specimen, but does show GNR. WBC decreased today after starting Zosyn. Continue pulmonary toilet. * Bleeding DU- s/p EGD x 2 plus embolization with apparent stabilization. Never needed additional procedure. H/H stable at 28. * Anemia- 2/2 above * hypotension- Remains soft, but MAP still >>65. Check NICOM now to assess fluid responsiveness, but treat only if MAP <65. * OK for floor/PCU Subjective: Feeling better today with less dramatic dyspnea. Stoill with episodic increased RR associated with activity. Ambulating in halls Objective: Vital Signs Temp Pulse Resp BP Pulse Ox 36.9 C 100 27 H 96/59 L 96 01/16/17 13:00 01/16/17 13:00 01/16/17 13:00 01/16/17 13:00 01/16/17 13:00 Microbiology 01/15/17 11:55 - Final Sputum, Expectorated Laboratory Results 01/16/17 04:15 01/16/17 04:15 01/15/17 01/16/17 01/17/17 05:59 05:59 05:59 Intake Total 3017 2165 Output Total 3150 2780 Balance -133 -615 PT 15.0 SEC (12.0-15.0) 01/13/17 13:25 INR 1.18 (0.83-1.16) H 01/13/17 13:25 Physical Exam - Physical Exam General Appearance: WD/WN, alert, no apparent distress EENT: PERRL/EOMI Neck: supple Respiratory: lungs clear, normal breath sounds, No respiratory distress, No rales Cardiac/Chest: normal peripheral pulses, regular rate, rhythm, No edema Abdomen: normal bowel sounds, non-tender, soft, No distended Skin: normal color, warm/dry Lymphatic: no adenopathy Extremities: non-tender, No pedal edema Neuro/Psych: alert, normal mood/affect, oriented x 3 ICD10 Worksheet Patient Problems: Problems Problem Status Onset Dehydration Acute Syncope Acute Vomiting Acute
[2017-01-16] MEDS: IPRATROPIUM/ALBUTEROL 3 ML DEYVIAL IH SCH ×2 (16:45→23:15)
--- NOTE | 2017-01-16 21:41 | SOAPPROG ---
[facility] Progress Note Assessment/Plan: Assessment: 51 MALE WITH THE BLEEDING DUODENAL ULCER TREATED IN IR FOR EMBOLIZATION / STABLE TODAY WITH NO EVIDENCE OF BLEEDING / HEMATOCRIT STABLE AROUND 29-30 ABDOMEN SOFT AND NONTENDER Plan: CONTINUE OBSERVATION 01/15/17 16:38 01/16/17 21:39 DOING WELL TODAY/ HCT REASONABLY STABLE/AFEBRILE/ NO PAIN/ ON THERAPY FOR PNA Objective: Vital Signs Temp Pulse Resp BP Pulse Ox 37.0 C 106 H 19 108/80 95 01/16/17 19:00 01/16/17 20:00 01/16/17 20:00 01/16/17 20:00 01/16/17 20:00 Microbiology 01/15/17 11:55 - Final Sputum, Expectorated Laboratory Results 01/16/17 04:15 01/16/17 04:15 01/15/17 01/16/17 01/17/17 05:59 05:59 05:59 Intake Total 3017 2165 1564 Output Total 3150 2780 900 Balance -133 -615 664 PT 15.0 SEC (12.0-15.0) 01/13/17 13:25 INR 1.18 (0.83-1.16) H 01/13/17 13:25 ICD10 Worksheet Patient Problems: Problems Problem Status Onset Dehydration Acute Syncope Acute Vomiting Acute
[2017-01-16] MEDS: CYCLOBENZAPRINE 10 MG TAB PO PRN (21:54)
[2017-01-16] MEDS: PANTOPRAZOLE SODIUM 40 MG TAB PO SCH (21:54)
[2017-01-16] MEDS: guaiFENesin/CODEINE PHOS 10 ML UDCUP PO PRN (21:56)
[2017-01-16] MEDS: PIPERACILLIN SODIUM/TAZOBACTAM 3.375 GM in D5W 50 ML IV SCH (21:57)
[2017-01-16] MEDS: PATCH REMOVAL 1 EA PATCH TD SCH (21:57)
[2017-01-17 04:31] LABS: % IMMATURE GRANULYOCYTES 0.6 % (0.0-1.1); ABSOLUTE IMMATURE GRANULOCYTES 0.06 10^3/uL (0.00-0.10); ADD DIFF? NO; ADD MORPH? NO; ADD SCAN? NO; ATYPICAL LYMPHOCYTE FLAG 10 (0-99); FRAGMENT RBC FLAG 0 (0-99); HEMATOCRIT 26.7 % (40.0-51.0); HEMOGLOBIN 9.3 g/dL (13.7-17.5); LEFT SHIFT FLG 0 (0-99); LIPEMIA HEMOLYSIS FLAG 90 (0-99); MEAN CELL HEMOGLOBIN 30.3 pg (27.9-34.1); MEAN CELL HEMOGLOBIN CONCENTR. 34.8 g/dL (32.4-36.7); MEAN PLATELET VOLUME 9.5 fL (8.7-11.7); PLATELET CLUMPS FLAG 0 (0-99); PLATELET COUNT 198 10^3/uL (150-400); RED BLOOD CELL COUNT 3.07 10^6/uL (4.40-6.38)
[2017-01-17 04:59] LABS: ANION GAP 8 mEq/L (8-16); CALCIUM 8.2 mg/dL (8.5-10.4); CARBON DIOXIDE 21 mEq/l (22-31); CHLORIDE 108 mEq/L (97-110); CREATININE 0.8 mg/dL (0.7-1.3); GLOMERULAR FILTRATION RATE > 60; GLUCOSE 95 mg/dL (70-100); POTASSIUM 3.6 mEq/L (3.5-5.2); SODIUM 137 mEq/L (134-144)
[2017-01-17] MEDS: PIPERACILLIN SODIUM/TAZOBACTAM 3.375 GM in D5W 50 ML IV SCH ×3 (05:21→22:07)
[2017-01-17] MEDS: IPRATROPIUM/ALBUTEROL 3 ML DEYVIAL IH SCH ×2 (06:14→10:55)
[2017-01-17] MEDS: LEVOTHYROXINE 150 MCG TAB PO SCH (07:59)
[2017-01-17] MEDS ORDERED: POTASSIUM CL 20 MEQ TAB PO ONE (08:38)
[2017-01-17] MEDS: guaiFENesin 600 MG TAB.ER PO SCH ×2 (08:58→22:06)
[2017-01-17] MEDS: LIDOCAINE 5% 1 EA PATCH TD SCH (09:00)
[2017-01-17] MEDS: CLARITHROMYCIN 500 MG TAB PO SCH ×2 (09:00→22:05)
[2017-01-17] MEDS: PANTOPRAZOLE SODIUM 40 MG TAB PO SCH ×2 (09:01→22:07)
[2017-01-17] MEDS ORDERED: BISACODYL 5 MG EC TAB PO ONE (10:00)
[2017-01-17] MEDS ORDERED: LACTULOSE 20 GM/30 ML UDCUP PO PRN (10:00)
[2017-01-17] MEDS ORDERED: MAGNESIUM HYDROXIDE 30 ML UDCUP PO PRN (10:00)
[2017-01-17] MEDS ORDERED: POLYETHYLENE GLYCOL 3350 17 GM PKT PO PRN (10:00)
[2017-01-17] MEDS ORDERED: BISACODYL 10 MG SUPP PR PRN (10:00)
[2017-01-17] MEDS: SENNOSIDES/DOCUSATE SODIUM TAB PO SCH ×2 (10:31→22:06)
--- NOTE | 2017-01-17 12:38 | SOAPPROG ---
[facility] Progress Note Assessment/Plan: Assessment: 51 MALE WITH THE BLEEDING DUODENAL ULCER TREATED IN IR FOR EMBOLIZATION / STABLE TODAY WITH NO EVIDENCE OF BLEEDING / HEMATOCRIT STABLE AROUND 29-30 ABDOMEN SOFT AND NONTENDER Plan: CONTINUE OBSERVATION 01/15/17 16:38 01/16/17 21:39 DOING WELL TODAY/ HCT REASONABLY STABLE/AFEBRILE/ NO PAIN/ ON THERAPY FOR PNA 01/17/17 12:37 ABDOMEN SOFT WITH NO PAIN OR TENDERNESS / AFEBRILE/ NO OUTWARD SIGNS OF HEMORRHAGE/ HOWEVER HIS HEMATOCRIT HAS DROPPED SLIGHTLY PLAN IS FOLLOW-UP H AND H Objective: Vital Signs Temp Pulse Resp BP Pulse Ox 36.7 C 94 30 H 108/73 95 01/17/17 08:00 01/17/17 10:59 01/17/17 09:00 01/17/17 09:00 01/17/17 10:59 Microbiology 01/15/17 11:55 - Final Sputum, Expectorated Sputum Culture - Final Laboratory Results 01/17/17 04:20 01/17/17 04:20 01/16/17 01/17/17 01/18/17 05:59 05:59 05:59 Intake Total 2165 3639 700 Output Total 2780 2400 750 Balance -615 1239 -50 PT 15.0 SEC (12.0-15.0) 01/13/17 13:25 INR 1.18 (0.83-1.16) H 01/13/17 13:25 ICD10 Worksheet Patient Problems: Problems Problem Status Onset Dehydration Acute Syncope Acute Vomiting Acute
--- NOTE | 2017-01-17 15:30 | HOSPPROG ---
Hospitalist Progress Note Assessment/Plan: Assessment: 51-year-old male presents with acute upper gastrointestinal hemorrhage secondary to duodenal ulcer in the setting of H pylori, complicated by aspiration pneumonia Plan: 1. UGIB. Acute, 2/2 duodenal ulcer with visible vessel - failed tx by EGD - s/p IR gastroduodenal artery embolization, GDA coil migrated to NOONAN - off meloxicam - IV PPI, adjusted to PO - monitor Hgb w/ repeat at 4 p.m. 2/2 downtrending Hgb - adv diet to regular 2. Hemorrhagic shock. S/p IVF 3. Acute Blood Loss anemia. Monitoring Hgb 4. Chronic back pain. Off NSAIDs, lidoderm patch trial 5. H pylori infection. On PPI and Abx 6. Aspiration Pneumonia. Acute, CXR has LLL infiltrate - cont w/ zosyn, monitor CBC, if downtrending tomorrow will adjust to PO Abx - sputum cx w/ WBC - mucinex/guaif/cod/tessalon/nebs 7. Constipation. Cont ambulation, hold on promotility Diet. Regular PPx. High risk, SCDs Code. Full Dispo. ADD uncertain, pending stability of above Subjective: Patient reports no bowel movement, continues to have a cough Objective: Vital Signs Temp Pulse Resp BP Pulse Ox 36.7 C 94 30 H 108/73 95 01/17/17 08:00 01/17/17 10:59 01/17/17 09:00 01/17/17 09:00 01/17/17 10:59 Microbiology 01/15/17 11:55 - Final Sputum, Expectorated Sputum Culture - Final Laboratory Results 01/17/17 04:20 01/17/17 04:20 01/16/17 01/17/17 01/18/17 05:59 05:59 05:59 Intake Total 2165 3639 700 Output Total 2780 2400 750 Balance -615 1239 -50 PT 15.0 SEC (12.0-15.0) 01/13/17 13:25 INR 1.18 (0.83-1.16) H 01/13/17 13:25 - Physical Exam Constitutional: no apparent distress, not in pain, No uncomfortable Cardiovascular: regular rate and rhythym, no murmur, rub, or gallop Respiratory: rhonchi (Left lateral segment), No expiratory wheeze, No bronchial breath sounds, No respiratory distress Gastrointestinal: No normoactive bowel sounds (Hypoactive bowel sounds), No tenderness, No guarding, No distension Neurologic: AAOx3, sensation intact bilaterally Psychiatric: interacting appropriately, not anxious, not encephalopathic, thought process linear ICD10 Worksheet Patient Problems: Problems Problem Status Onset Vomiting Acute Dehydration Acute Syncope Acute
[2017-01-17 16:10] LABS: HEMATOCRIT 29.7 % (40.0-51.0); HEMOGLOBIN 10.1 g/dL (13.7-17.5)
--- NOTE | 2017-01-17 17:05 | PDINTPN ---
[facility] Progress Note Assessment/Plan: Assessment: 51 M with minimal PMH admitted with UGIB. He initially underwent EGD where visualization was difficult but was found to have a DU with visible vessel. He was injected but continued to bleed and required a second EGD. He was again injected but eventually went to IR for embolization. He is getting treated for H. pylori. His BP has been marginal and responds to blood products and fluids. * Aspiration pneumonia - New problem to me. Sputum culture is suboptimal specimen, but does show GNR. WBC normal. On Zosyn day #4. Minimal cough, sats OK on RA. * Bleeding DU- s/p EGD x 2 plus embolization with apparent stabilization. Never needed additional procedure. * Anemia- 2/2 above. Stable this afternoon. * hypotension- Improved. Plan: Check CXR, ? d/c Zosyn after 5 days if improved. Is also on Biaxin. 01/17/17 17:07 Subjective: Feels better. Minimal cough, usually with scant clear sputum. Still feels he can 't take a full breath. Objective: Vital Signs Temp Pulse Resp BP Pulse Ox 36.7 C 99 16 97/63 L 94 01/17/17 15:59 01/17/17 15:59 01/17/17 15:59 01/17/17 15:59 01/17/17 15:59 Microbiology 01/15/17 11:55 - Final Sputum, Expectorated Sputum Culture - Final Laboratory Results 01/17/17 16:00 01/17/17 04:20 01/16/17 01/17/17 01/18/17 05:59 05:59 05:59 Intake Total 2165 3639 700 Output Total 2780 2400 750 Balance -615 1239 -50 PT 15.0 SEC (12.0-15.0) 01/13/17 13:25 INR 1.18 (0.83-1.16) H 01/13/17 13:25 CXR 01/15: Patchy infiltrate left mid-lower lung. Images reviewed. Physical Exam - Physical Exam General Appearance: alert, no apparent distress EENT: normal ENT inspection Neck: normal inspection Respiratory: crackles (right) Cardiac/Chest: regular rate, rhythm, No edema Abdomen: normal bowel sounds, non-tender Skin: normal color, warm/dry Extremities: normal inspection Neuro/Psych: alert, normal mood/affect, oriented x 3 ICD10 Worksheet Patient Problems: Problems Problem Status Onset Dehydration Acute Syncope Acute Vomiting Acute
[2017-01-17] MEDS ORDERED: IPRATROPIUM/ALBUTEROL 3 ML DEYVIAL IH PRN (17:30)
[2017-01-17] MEDS: CYCLOBENZAPRINE 10 MG TAB PO PRN (22:07)
[2017-01-17] MEDS: PATCH REMOVAL 1 EA PATCH TD SCH (22:07)
[2017-01-17] MEDS: guaiFENesin/CODEINE PHOS 10 ML UDCUP PO PRN (22:07)
[2017-01-18] MEDS: BENZONATATE 100 MG CAP PO PRN ×2 (00:35→21:30)
[2017-01-18] MEDS: PIPERACILLIN SODIUM/TAZOBACTAM 3.375 GM in D5W 50 ML IV SCH ×3 (06:41→21:21)
[2017-01-18 06:59] LABS: % IMMATURE GRANULYOCYTES 0.6 % (0.0-1.1); ABSOLUTE IMMATURE GRANULOCYTES 0.06 10^3/uL (0.00-0.10); ADD DIFF? NO; ADD MORPH? NO; ADD SCAN? NO; ATYPICAL LYMPHOCYTE FLAG 20 (0-99); FRAGMENT RBC FLAG 0 (0-99); HEMATOCRIT 28.1 % (40.0-51.0); HEMOGLOBIN 9.8 g/dL (13.7-17.5); LEFT SHIFT FLG 0 (0-99); LIPEMIA HEMOLYSIS FLAG 90 (0-99); MEAN CELL HEMOGLOBIN 29.6 pg (27.9-34.1); MEAN CELL HEMOGLOBIN CONCENTR. 34.9 g/dL (32.4-36.7); MEAN CELL VOLUME 84.9 fL (81.5-99.8); MEAN PLATELET VOLUME 8.8 fL (8.7-11.7); PLATELET CLUMPS FLAG 10 (0-99); PLATELET COUNT 278 10^3/uL (150-400); RED BLOOD CELL COUNT 3.31 10^6/uL (4.40-6.38); RED CELL DISTRIBUTION WIDTH 14.6 % (11.5-15.2)
[2017-01-18 07:13] LABS: ANION GAP 9 mEq/L (8-16); CALCIUM 8.5 mg/dL (8.5-10.4); CARBON DIOXIDE 24 mEq/l (22-31); CHLORIDE 106 mEq/L (97-110); CREATININE 0.8 mg/dL (0.7-1.3); GLOMERULAR FILTRATION RATE > 60; GLUCOSE 100 mg/dL (70-100); POTASSIUM 3.9 mEq/L (3.5-5.2); SODIUM 139 mEq/L (134-144)
[2017-01-18] MEDS: LEVOTHYROXINE 150 MCG TAB PO SCH (08:42)
[2017-01-18] MEDS: SENNOSIDES/DOCUSATE SODIUM TAB PO SCH ×2 (08:43→21:21)
[2017-01-18] MEDS: guaiFENesin 600 MG TAB.ER PO SCH ×2 (08:43→21:19)
[2017-01-18] MEDS: PANTOPRAZOLE SODIUM 40 MG TAB PO SCH ×2 (08:43→21:20)
[2017-01-18] MEDS: LIDOCAINE 5% 1 EA PATCH TD SCH (08:45)
[2017-01-18] MEDS: CLARITHROMYCIN 500 MG TAB PO SCH ×2 (09:52→21:19)
[2017-01-18] MEDS ORDERED: MAGNESIUM CITRATE 300 ML BOTTLE PO ONE (14:39)
[2017-01-18] MEDS ORDERED: ALBUTEROL 60 PUFFS/8 GM MDI IH PRN (14:42)
--- NOTE | 2017-01-18 14:43 | HOSPPROG ---
Hospitalist Progress Note Assessment/Plan: Assessment: 51-year-old male presents with acute upper gastrointestinal hemorrhage secondary to duodenal ulcer in the setting of H pylori, complicated by aspiration pneumonia Plan: 1. UGIB. Acute, 2/2 duodenal ulcer with visible vessel - failed tx by EGD - s/p IR gastroduodenal artery embolization, GDA coil migrated to NOONAN - off meloxicam - IV PPI, adjusted to PO - f/u Hgb in AM - adv diet to regular 2. Hemorrhagic shock. S/p IVF 3. Acute Blood Loss anemia. Monitoring Hgb 4. Chronic back pain. Off NSAIDs, lidoderm patch trial, will need outpt PT - counseled about the utility of outpt conservative, non-surgical tx for back pain 5. H pylori infection. On PPI and Abx (adjust to amox 1g bid, clarithro bid tomorrow for total 14 days) 6. Aspiration Pneumonia. Acute, CXR has persistent LLL infiltrate (personally interpreted) - cont w/ zosyn, D#5, DC after today - sputum cx w/ WBC - mucinex/guaif/cod/tessalon/nebs - room air amb trial d/w RN 7. Constipation. Cont ambulation, get aggressive w/ laxatives today Diet. Regular PPx. High risk, SCDs Code. Full Dispo. ADD 01/19, pending stability of above Subjective: Patient reports ongoing coughing intermittently with ambulation, fatigue, no bowel Objective: Vital Signs Temp Pulse Resp BP Pulse Ox 36.4 C 98 18 113/77 92 01/18/17 13:05 01/18/17 13:05 01/18/17 13:05 01/18/17 13:05 01/18/17 13:05 Microbiology 01/15/17 11:55 - Final Sputum, Expectorated Sputum Culture - Final Laboratory Results 01/18/17 06:50 01/18/17 06:50 01/17/17 01/18/17 01/19/17 05:59 05:59 05:59 Intake Total 3639 2911 Output Total 2400 1650 Balance 1239 1261 PT 15.0 SEC (12.0-15.0) 01/13/17 13:25 INR 1.18 (0.83-1.16) H 01/13/17 13:25 - Time Spent With Patient Time Spent with Patient: greater than 35 minutes Time Spent with Patient: Greater than 35 minutes spent on this patients care, greater than 50% of time spent counseling, educating, and coordinating care regarding the above mentioned plan. - Physical Exam Constitutional: no apparent distress, appears nourished, not in pain Cardiovascular: regular rate and rhythym, no murmur, rub, or gallop Respiratory: rhonchi ( on left on inspiration), No expiratory wheeze, No bronchial breath sounds Gastrointestinal: normoactive bowel sounds, soft, non-tender abdomen, no palpable masses Neurologic: AAOx3 Psychiatric: interacting appropriately, not anxious, not encephalopathic, thought process linear ICD10 Worksheet Patient Problems: Problems Problem Status Onset Vomiting Acute Dehydration Acute Syncope Acute
[2017-01-18] MEDS: PATCH REMOVAL 1 EA PATCH TD SCH (21:20)
[2017-01-18] MEDS: CYCLOBENZAPRINE 10 MG TAB PO PRN (21:30)
[2017-01-18] MEDS: guaiFENesin/CODEINE PHOS 10 ML UDCUP PO PRN (21:30)
[2017-01-19 04:56] LABS: % IMMATURE GRANULYOCYTES 1.2 % (0.0-1.1); ADD DIFF? NO; ADD MORPH? NO; ADD SCAN? NO; ATYPICAL LYMPHOCYTE FLAG 30 (0-99); FRAGMENT RBC FLAG 0 (0-99); HEMATOCRIT 30.7 % (40.0-51.0); HEMOGLOBIN 10.5 g/dL (13.7-17.5); LEFT SHIFT FLG 0 (0-99); LIPEMIA HEMOLYSIS FLAG 90 (0-99); MEAN CELL HEMOGLOBIN 29.2 pg (27.9-34.1); MEAN CELL HEMOGLOBIN CONCENTR. 34.2 g/dL (32.4-36.7); MEAN CELL VOLUME 85.5 fL (81.5-99.8); MEAN PLATELET VOLUME 8.5 fL (8.7-11.7); PLATELET CLUMPS FLAG 0 (0-99); PLATELET COUNT 320 10^3/uL (150-400); RED BLOOD CELL COUNT 3.59 10^6/uL (4.40-6.38); RED CELL DISTRIBUTION WIDTH 14.6 % (11.5-15.2)
[2017-01-19 05:20] LABS: ANION GAP 8 mEq/L (8-16); CALCIUM 8.9 mg/dL (8.5-10.4); CARBON DIOXIDE 24 mEq/l (22-31); CHLORIDE 106 mEq/L (97-110); CREATININE 0.9 mg/dL (0.7-1.3); GLOMERULAR FILTRATION RATE > 60; GLUCOSE 96 mg/dL (70-100); SODIUM 138 mEq/L (134-144)
[2017-01-19] MEDS: LEVOTHYROXINE 150 MCG TAB PO SCH (05:22)
[2017-01-19] MEDS: PIPERACILLIN SODIUM/TAZOBACTAM 3.375 GM in D5W 50 ML IV SCH (05:22)
--- NOTE | 2017-01-19 09:09 | PDIAF ---
- Diagnosis Diagnosis: H. pylori / NSIAD ulcer, GI bleed, Aspiration pneumonia Code Status: Full Code - Medication Management Discharge Medications: Medications to Continue on Transfer Levothyroxine [Synthroid 150 mcg (*)] 150 mcg PO DAILY06 01/05/17 [Last Taken 07:00] Acetaminophen [Tylenol ES 500 mg (*)] 1,000 mg PO Q8 PRN 01/10/17 [Last Taken ] Cholecalciferol (Vitamin D3) [Vitamin D3] 5,000 unit PO DAILY 01/10/17 [Last Taken 01/10/17 07:00] Cyclobenzaprine [Flexeril 10 MG (*)] 10 mg PO HS PRN 01/10/17 [Last Taken ] Albuterol [Proventil Inhaler HFA (*)] 2 puffs IH Q4HRS PRN #1 mdi 01/19/17 [ Last Taken Unknown] Amoxicillin/Clavulanate Pot [Augmentin 875 MG TAB (*)] 875 mg PO BID #14 tab [Last Taken Unknown] Benzonatate [Tessalon Pearles] 100 - 200 mg PO TID PRN #30 cap 01/19/17 [Last Taken Unknown] Clarithromycin [Biaxin (*)] 500 mg PO BID #14 tab 01/19/17 [Last Taken Unknown] Guaifenesin/Codeine Phosphate [Guaifenesin-Codeine Liquid] 10 ml PO Q4 PRN #400 ml 01/19/17 [Last Taken Unknown] Lidocaine 5% [Lidoderm 5% Patch (*)] 1 ea TD DAILY #30 patch 01/19/17 [Last Taken Unknown] Pantoprazole Sodium [Protonix 40mg (*)] 40 mg PO BID #60 tab 01/19/17 [Last Taken Unknown] Patch Removal 1 ea TD DAILY21 patch 01/19/17 [Last Taken Unknown] guaiFENesin [Mucinex 600 MG (*)] 1,200 mg PO BID #20 tab.er 01/19/17 [Last Taken Unknown] Form Setter Helper Antibiotics: clarithromycin and augmentin bid PO x 7 days Discharge Medications: Refer to the Discharge Home Medication list for PRN reason. PICC Care - Routine: N/A - Orders Services needed: Home Care, Registered Nurse, Physical Therapy Home Care Face to Face: I certify that this patient was under my care and that I had the required [id number] encounter meeting the encounter requirements on the discharge day. My findings support the fact that the patient is homebound as defined in CMS Chapter 7 Medicare Benefits Manual 30.1.1, The condition of the patient is such that there exists a normal inability to leave home and consequently, leaving home would require a considerable and taxing effort. Diet Recommendation: no restrictions on diet [place]: Not applicable Activity/Weight Bearing Restrictions: as tolerated - Labs/Radiology BMP Date: 02/02/17 CBC Date: 02/02/17 Call or Fax Lab and Imaging Results to: Dr. Mo and Sujit - Follow Up Care Current Providers and Referrals: BRITTA CAZARES [Primary Care Provider] - follow up in 1 week Wilder Mo MD [Medical Doctor] -
[2017-01-19] MEDS: LIDOCAINE 5% 1 EA PATCH TD SCH (09:27)
[2017-01-19] MEDS: guaiFENesin 600 MG TAB.ER PO SCH (09:28)
[2017-01-19] MEDS: PANTOPRAZOLE SODIUM 40 MG TAB PO SCH (09:28)
[2017-01-19] MEDS: CLARITHROMYCIN 500 MG TAB PO SCH (09:28)
[2017-01-19] MEDS: SENNOSIDES/DOCUSATE SODIUM TAB PO SCH (09:28)
[2017-01-19 11:03] VITALS: BP 104/75; PULSE 96; RESP 18; TEMP 97.5; O2SAT 91
--- NOTE | 2017-01-19 11:45 | PDDCSUM ---
Discharge Summary Discharge Summary: DISCHARGE SUMMARY FOLLOW-UP ITEMS: Repeat CBC and Chem 7 in 2 weeks with results to Dr. Mo DATE OF ADMISSION: 01/10/2017 DATE OF DISCHARGE: 01/19/2017 DISCHARGE DIAGNOSES: 1. Acute hemorrhagic shock 2. Acute upper gastrointestinal hemorrhage 3. Acute blood loss anemia 4. Acute aspiration pneumonia 5. Chronic back pain 6. H pylori infection 7. Constipation CONSULTATIONS: Gastroenterology, Interventional Radiology, General surgery PROCEDURES / IMAGIN01/11/[address] Mo, 01/13/2017 Interventional Radiology angiography as well as embolization with coil embolization of the GDA with migration to the hepatic artery CHIEF COMPLAINT: Acute weakness and melena SUBJECTIVE: Patient is feeling well at time of discharge, he has had a bowel movement, he is able to ambulate safely on room air, his cough is well controlled PHYSICAL EXAM ON DISCHARGE: Systolic blood pressure is 110-120, heart rate is 90, afebrile overnight, satting well on room air, 92% with ambulation, some inspiratory crackles on the left but overall good air movement on the left chest, bowel sounds are present LABS ON DISCHARGE: Hemoglobin 10.5, white blood cell count 8500, creatinine 0.9, BUN 12, potassium 4 HOSPITAL COURSE BY PROBLEM: 1. Hemorrhagic shock. Secondary to bleeding ulcer, requiring blood product and IV fluids. 2. Acute upper gastrointestinal hemorrhage. Secondary to duodenal ulcer with visible bleeding vessel. Underwent EGD by Dr. Mo and then underwent angiography with Interventional Radiology gastric duodenal artery embolization with coil migrating to the hepatic artery but successful discontinuation of bleeding. The etiology of the ulcer was most likely combination of nonsteroidal anti-inflammatory medications as well as H pylori infection. Consequently we have recommended that he not have ongoing use of nonsteroidal anti-inflammatory medications for his pain control and that his H pylori be treated. He will remain on a PPI twice daily and will have his blood count followed up by Dr. Mo as an outpatient. His BUN has normalized and he has no evidence of active bleeding at time of discharge. 3. Acute blood loss anemia. Evidenced by decline from 13.5-7.6. 4. H pylori infection. Positive, PPI twice daily with clarithromycin twice daily for total of 14 days and beta-lactam twice daily for total of 14 days. The patient should be on a PPI twice daily for least a month and follow up with Dr. Mo before making any changes. He will most likely have an outpatient H pylori stool antigen test in 3 months and will need to be off of a PPI at that time, to be discussed with Dr. Mo in the outpatient setting. 5. Acute aspiration pneumonia. Chest x-ray has persistent left lower lobe infiltrate and he has received 5 days of Zosyn therapy. He will be continued on Augmentin to double cover him for his H pylori as well as any lingering pneumonia. He will have received a total of 12 days of antibiotic therapy which would be appropriate coverage for his aspiration pneumonia. He should have repeat chest x-ray in 4-6 weeks by primary care provider. He did have hypoxia during his hospitalization but he is not hypoxic at time of discharge. He has completed room air trial and he will utilize Mucinex, guaifenesin with codeine, Tessalon Perles for cough control as an outpatient and he will also have an albuterol inhaler to utilize if he experiences any shortness of breath. I have advised that if he experiences shortness of breath in his home with exertion, that he should rest and take a puff from his albuterol inhaler. 6. Chronic back pain. Patient is off nonsteroidal anti-inflammatory medications and he has been utilizing Lidoderm patch with Tylenol. He will utilize this for chronic back pain control and will also follow up with PT and neurosurgery. 7. Constipation. Patient did move his bowels prior to discharge. DISCHARGE MEDICATIONS: Please see official discharge medication reconciliation sheet in chart , Augmentin twice daily for 7 days, clarithromycin twice daily for 7 days, proton pump inhibitor twice daily, Lidoderm patch, albuterol inhaler. DISCHARGE INSTRUCTIONS: Patient will have home physical therapy as he is extremely deconditioned at this time. TIME SPENT: Greater than 30 minutes were spent on direct patient care, as well as discharge planning and preparation.
== END 2017-01-19 14:07 | disposition home health service (06) | DRG 356 ==
LOC: EDUNIT# → F1N 17:46 → F2N 01-11 12:31 → OBSVTOIN 01-11 16:30 → F2N 01-12 14:38 → F3N 01-18 08:26
PROVIDERS: ADMIT Hospitalist; ATTEND Hospitalist
PROC: 3E0G8GC Introduction of Other Therapeutic Substance into Upper GI, Via Natural or Artificial Opening Endoscopic (ICD-10-PCS; 2017-01-11)
PROC: 0DJ08ZZ Inspection of Upper Intestinal Tract, Via Natural or Artificial Opening Endoscopic (ICD-10-PCS; 2017-01-11)
PROC: 0DJ08ZZ Inspection of Upper Intestinal Tract, Via Natural or Artificial Opening Endoscopic (ICD-10-PCS; 2017-01-13)
PROC: 3E0G8GC Introduction of Other Therapeutic Substance into Upper GI, Via Natural or Artificial Opening Endoscopic (ICD-10-PCS; 2017-01-13)
PROC: 04L33DZ Occlusion of Hepatic Artery with Intraluminal Device, Percutaneous Approach (ICD-10-PCS; principal; 2017-01-13 12:00)
PROC: 30233N1 Transfusion of Nonautologous Red Blood Cells into Peripheral Vein, Percutaneous Approach (ICD-10-PCS; 2017-01-16)
DX: K26.4 Chronic or unspecified duodenal ulcer with hemorrhage (principal); J69.0 Pneumonitis due to inhalation of food and vomit; R57.8 Other shock; D62 Acute posthemorrhagic anemia; B96.81 Helicobacter pylori [H. pylori] as the cause of diseases classified elsewhere; G89.29 Other chronic pain; M54.9 Dorsalgia, unspecified; K59.00 Constipation, unspecified; E03.9 Hypothyroidism, unspecified
CPT/HCPCS: 96365; 97116-GP; 97161-GP; 97530-GP; C1769; C1773; C1892; C1894; G0378; J0330; J1644; J2250; J2370; J2405; J2543; J2704; J2710; J3010; P9016; P9047; Q9967

== ENCOUNTER → 2017-04-27 | Outpatient (CLI) | payer OTHER | LOC: FLAB 13:13 | PROVIDERS: ATTEND Internal Medicine | DX: N43.41 Spermatocele of epididymis, single (principal) ==